=== PATIENT | male | born 1935 | race Caucasian/White ===

== ENCOUNTER 2019-10-31 04:00 | Outpatient (RCR) | payer MEDICARE, MEDICAID, SELFPAY | END 2019-11-05 00:01 | LOC: LAB 04:00 | PROVIDERS: Family Provider Family Medicine; Visit Provider Nurse Practitioner Family | DX: I10 Essential (primary) hypertension (principal); E11.9 Type 2 diabetes mellitus without complications; G20 Parkinson's disease; M10.9 Gout, unspecified | CPT/HCPCS: 36415 ×2; 80048 ×2 ==

== ENCOUNTER 2019-12-25 16:17 | Emergency (ER) | payer MEDICARE, MEDICAID, SELFPAY ==
[2019-12-25 16:21] VITALS: BP 160/70; PULSE 76; RESP 16; TEMP 37.9; O2SAT 87; BMI 29.1
[2019-12-25 16:26] VITALS: BP 160/70; PULSE 81; RESP 17; TEMP 37.9; O2SAT 93
--- NOTE | 2019-12-25 16:28 | PC.NURSE ---
pt has infection in foot
--- NOTE | 2019-12-25 17:52 | XR_ITS ---
WS: [id number] XR foot LT min 3V* [id number] REASON FOR EXAM: osteomyelitis FINDINGS: Degenerate changes and cystic findings are seen in the head of the first metatarsal. There is reconstructed changes also seen in the proximal first phalanx suggesting early osteomyelitis. In the calcaneus is a smooth appearing lesion most likely a cyst. There is 2.44 cm. XR/XR foot LT min 3V* [id number] IMPRESSION: Destructive changes suspected in the first metatarsophalangeal junction with an ulcer along the dorsal surface. Bone cyst of the calcaneus.
--- NOTE | 2019-12-25 18:03 | ED_ITS ---
HPI - Extremity Problem General: Chief complaint: Extremity Problem,Nontraumatic Stated complaint: L FOOT PAIN, SWELLING, INFECTION Time Seen by Provider: 12/25/19 16:36 Source: patient Mode of arrival: ambulatory Limitations: no limitations History of Present Illness: HPI Narrative: Patient comes in today with complaints of chronic wound to the left medial foot. Patient was referred to the ER for concerns of osteomyelitis. Patient appears well. Patient is very hard of hearing and has dementia. Patient is a [facility] patient. Review of Systems General: Reports: 10 or more systems reviewed and unremarkable except in HPI and below Skin/Breast: Reports: redness and skin tenderness PFSH ED PFSH: Social History Smoking and tobacco status: former smoker Physical Exam Const: COMMON NORMALS: no apparent distress and oriented x3 GENERAL APPEARANCE: cooperative HENMT: COMMON NORMALS: normocephalic, external ears normal, EAC's normal, TM's normal bilaterally and external nose normal HEAD & SCALP: normal to inspection and normocephalic FACE & SINUS: normal facial exam NOSE: external nose normal GENERAL EAR: hearing not grossly impaired EXTERNAL EAR: Yes external ears normal EXTERNAL AUDITORY CANAL: EAC's normal TYMPANIC MEMBRANE: TM's normal bilaterally MOUTH: oral and palatal mucosa normal THROAT: posterior oropharynx normal Eye: COMMON NORMALS: PERRL and EOMs intact bilaterally PUPIL: Yes PERRL Neck/C-Spine: COMMON NORMALS: full ROM and no lymphadenopathy Lymph: LYMPHATIC: no lymphedema noted Chest: COMMONS NORMALS: inspection of chest normal and palpation of chest normal Resp: COMMON NORMALS: normal respiratory effort and clear to auscultation bilaterally AUSCULTATION: clear to auscultation bilaterally Cardio: COMMON NORMALS: regular rate and regular rhythm RATE: regular rate RHYTHM: regular rhythm GI: COMMON NORMALS: normal to inspection, nondistended, normoactive bowel sounds and non-tender : COMMON NORMALS: Yes no CVA tenderness BLADDER/KIDNEY EXAM: Yes no CVA tenderness Back/Pelvis: COMMON NORMALS: no CVA tenderness and thoracic and lumbar spine normal to inspection Extremity: COMMON NORMALS: full ROM GENERAL: Yes edema Neuro: COMMON NORMALS: oriented x3, moves all extremities and no focal motor deficits Psych: COMMON NORMALS: mental status grossly normal and cooperative Skin: NARRATIVE SKIN EXAM: 2 cm ulcer to the left medial ball of the foot. 6 cm area of surrounding erythema. Patient has swelling to the lower extremity. Course ED course: 2199, reviewed with Dr. Kathleen, recommended talking with Dr. Servin, podiatry regarding abnormalities on CT. When discussed with him recommended treatment in the wound clinic for care of the chronic wound. wjw Vital Signs: Vital signs: Vital Signs Temperature 100.2 F H 12/25/19 16:26 Pulse Rate 103 H 12/25/19 18:12 Respiratory Rate 18 12/25/19 18:12 Blood Pressure 160/70 12/25/19 16:26 Pulse Oximetry 94 12/25/19 18:12 MDM - Extremity (Nontraumatic) MDM Narrative: Medical decision making narrative: Patient comes in today with complaints of redness and tenderness to the left foot. On exam we note a chronic foot ulcer with some surrounding tissue redness is approximately 6 to 8 cm surrounding the wound. Capillary refill is noted. Pulses are noted. Differential diagnosis includes DVT, cellulitis, osteomyelitis, diabetic foot ulcer. CT scan noted no significant osteomyelitis to the foot he did have a possible osteomyelitis or bone destruction in a sesamoid bone. This was reviewed with Dr. Servin in podiatry and he did not think it was significant and could be managed outpatient with wound care. Laboratory values did note slightly elevated white count 15.5, creatinine was 1.1. Patient was given IV fluids of a 1 L bag, was also dosed with vancomycin and Zosyn x1. Patient will be discharged with Cipro and Augmentin for further treatment. And case management was requested to assist with wound care follow-up. Patient will be discharged back to fdc which is [facility]. Lab Data: Labs: Lab Results 12/25/19 12/25/19 12/25/19 Range/Units 18:11 18:11 18:11 WBC 15.5 H (4.0-10.0) 10^3/ uL RBC 4.05 L (4.1-5.3) 10^6/u L Hgb 11.7 (11.7-16.6) g/dL Hct 37.7 L (42.0-52.0) % MCV 93.1 (80-94) fL MCH 28.9 (28.0-34.0) pg MCHC 31.0 (30.0-36.0) g/dL RDW 13.2 (12.1-15.1) % Plt Count 334 (130-400) 10^3/c mm MPV 9.8 (7.4-10.4) fL Neut % (Auto) 78.3 % Lymph % (Auto) 13.5 % [place] % (Auto) 6.9 % Eos % (Auto) 0.5 % Baso % (Auto) 0.3 % Neut # (Auto) 12.2 H (1.8-7.7) 10^3/u L Lymph # (Auto) 2.1 (0.8-4.8) 10^3/u L [place] # (Auto) 1.1 H (0.2-0.9) 10^3/u L Eos # (Auto) 0.1 (0.0-0.8) 10^3/u L Baso # (Auto) 0.0 (0.0-0.1) 10^3/u L Nucleated RBC % (a uto) 0 % Nucleated RBCs # 0.0 /100WBC Sodium 136 (136-145) mmol/L Potassium 4.7 (3.5-5.1) mmol/L Chloride 97 L (98-107) mmol/L Carbon Dioxide 27 (22-29) mmol/L Anion Gap 16.7 (5-19) BUN 28 H (8-23) mg/dL Creatinine 1.1 (0.7-1.2) mg/dL Glucose 203 H (65-115) mg/dL Lactic Acid 2.4 H (0.5-2.2) mmol/L Calcium 9.8 (8.5-10.5) mg/dL Total Bilirubin 0.3 (0.15-1.2) mg/dL AST 17 (0-40) U/L ALT 17 (0-41) U/L Alkaline Phosphata se 134 H (40-130) IU/L Total Protein 7.8 (6.6-8.7) g/dL Albumin 3.7 (3.5-5.2) g/dL Globulin 4.1 (1.3-4.6) g/dL Discharge Plan Discharge Patient Disposition: Home, Self-Care Clinical Impression: Cellulitis of foot, left Chronic foot ulcer Qualifiers: Laterality: left Non-pressure ulcer stage: unspecified non-pressure ulcer stage Qualified Code(s): L97.529 - Non-pressure chronic ulcer of other part of left foot with unspecified severity Condition: Stable Prescriptions: New ciprofloxacin HCl 500 mg tablet 500 mg PO BID Qty: 20 RF: 0 amoxicillin-pot clavulanate 875-125 mg tablet 1 tab PO BID Qty: 20 RF: 0 Discharge Orders: Discharge Order (Routine); Ordered 12/25/19 Ordered By: Obdulio Tomlinson Referrals: Wilma Todd DO [Family Provider] - Discharge Diet: Usual diet Discharge Activity: Increase activity as tolerated Activity Restrictions/Additional Instructions: Patient needs referral for wound clinic Antibiotics as directed Encourage plenty of fluids Acetaminophen as needed for pain and fever Follow-up with primary care in one week Coding Level of Care Code ED Outdoor Recreation Specialist for Arslan Fwlucas Exam Comprehensive
[2019-12-25 18:12] VITALS: PULSE 103; RESP 18; O2SAT 94
[2019-12-25] MEDS: piperacillin-tazobactam 3.375 GM in sodium chloride 0.9% (plus) 50 ML IV (18:19)
[2019-12-25 18:20] LABS: Basophils % 0.3 %; Eosinophils # 0.1 10^3/uL (0.0-0.8); Eosinophils % 0.5 %; Hematocrit 37.7 % (42.0-52.0); Hemoglobin 11.7 g/dL (11.7-16.6); Lymphocytes # 2.1 10^3/uL (0.8-4.8); Lymphocytes % 13.5 %; Mean Corpuscular Hemoglobin 28.9 pg (28.0-34.0); Mean Corpuscular Volume 93.1 fL (80-94); Mean Platelet Volume 9.8 fL (7.4-10.4); Monocytes # 1.1 10^3/uL (0.2-0.9); Monocytes % 6.9 %; Neutrophils # 12.2 10^3/uL (1.8-7.7); Neutrophils % 78.3 %; Nucleated Red Blood Cells % 0 %; Platelet Count 334 10^3/cmm (130-400); Red Blood Count 4.05 10^6/uL (4.1-5.3); Red Cell Distribution Width 13.2 % (12.1-15.1); White Blood Count 15.5 10^3/uL (4.0-10.0)
[2019-12-25] MEDS: sodium chloride 0.9% 1,000 ML 999 ML IV (18:21)
[2019-12-25 18:41] LABS: Lactic Sepsis W/Reflex 2.4 mmol/L (0.5-2.2)
[2019-12-25 18:42] LABS: Alanine Aminotransferase 17 U/L (0-41); Albumin Level 3.7 g/dL (3.5-5.2); Alkaline Phosphatase 134 IU/L (40-130); Anion Gap 16.7 (5-19); Blood Urea Nitrogen 28 mg/dL (8-23); Calcium 9.8 mg/dL (8.5-10.5); Carbon Dioxide 27 mmol/L (22-29); Chloride 97 mmol/L (98-107); Globulin 4.1 g/dL (1.3-4.6); Glucose 203 mg/dL (65-115); Potassium 4.7 mmol/L (3.5-5.1); Sodium 136 mmol/L (136-145); Total Bilirubin 0.3 mg/dL (0.15-1.2); Total Protein 7.8 g/dL (6.6-8.7)
[2019-12-25 18:45] LABS: Aspartate Amino Transferase 17 U/L (0-40)
--- NOTE | 2019-12-25 18:46 | CTR_ITS ---
PROCEDURE INFORMATION: Exam: CT Left Lower Extremity With Contrast, Foot Exam date and time: 12/25/2019 8:24 PM Age: 84 years old Clinical indication: Condition or disease; Other: Sore on ball of lt foot; Additional info: Foot ulcer, osteomyelitis TECHNIQUE: Imaging protocol: CT of the Left lower extremity with intravenous contrast was performed. Exam focused on the foot. Total DLP: 653.83 mGy-cm Radiation optimization: All CT scans at this facility use at least one of these dose optimization techniques: automated exposure control; mA and/or kV adjustment per patient size (includes targeted exams where dose is matched to clinical indication); or iterative reconstruction. Contrast material: VISIPAQUE; Contrast volume: 95 ml; Contrast route: IV; COMPARISON: CR XR foot LT min 3V* [id number] 12/25/2019 6:10 PM FINDINGS: Bones/joints: Old fracture deformity of the distal fibula is noted. Old avulsion fracture of the medial malleolus with bony remodeling is noted. No acute fracture or dislocation. There is a prominent area of lucency with some coarsened trabecula in the calcaneus compatible with a probable intraosseous lipoma. No additional bony destruction or osteomyelitis. Soft tissues: There is soft tissue edema in the distal foot especially adjacent to the 1st toe. There is an ulcer of the plantar medial foot. Some subtle cortical regularity of the medial sesamoid bone that may reflect some osteomyelitis just deep to the ulcer. No foreign body. There is abundant soft tissue edema specially along the medial aspect of the foot adjacent to the ulcer. No localized soft tissue fluid collection or abscess. No gas in the soft tissues except for the ulcer. CT/CT foot LT w con [id number] IMPRESSION: 1. Some subtle cortical regularity of the medial sesamoid bone just deep to the ulcer that is concerning for bony destruction/osteomyelitis just deep to the ulcer. No osteomyelitis of the 1st metatarsal or remaining bones of the foot 2. 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 Old remote fracture deformities of the distal tibia and fibula. 3. Ulcer of the medial foot. Cellulitis. No fluid collection or abscess. Radiation Dose CTDIVOL = (mGy): DLP = 653.83 (mGy-cm)
[2019-12-25] MEDS: iodixanol 320 mg/mL 100mL Btl IV (20:25)
[2019-12-25 23:07] VITALS: BP 148/64; PULSE 82; RESP 16; O2SAT 94
--- NOTE | 2019-12-25 23:30 | PC.NURSE ---
Spoke with alf and called for transport for patient back to alf.
--- NOTE | 2019-12-26 01:30 | PC.NURSE ---
Patient dc'd to [facility] via [facility] in stable condition.
--- NOTE | 2019-12-26 14:52 | DCPLANNER ---
manager coding had message to schedule a follow up appointment for patient with Wound Care. manager coding called Wound Care, spoke with Alyssa, a follow up appointment was scheduled. manager coding found out that patient is in a custodial, piano case maker called the custodial, was told that wound care comes into the clinic. manager coding called Wound Care and cancelled appointment.
--- NOTE | 2019-12-27 17:24 | PC.NURSE ---
Blood Culture: Preliminary result-1 of 4 bottles gram positive cocci & clusters, Dr. Jenny SYKES, no further treatment at this time, waiting for final results.
== END 2019-12-26 01:30 | disposition home or self-care (01) ==
PROVIDERS: Emergency Provider Nurse Practitioner Family; Family Provider Family Medicine
DX: L03.116 Cellulitis of left lower limb (principal); L97.429 Non-pressure chronic ulcer of left heel and midfoot with unspecified severity; Z87.891 Personal history of nicotine dependence
CPT/HCPCS: 36415; 73630; 73701; 80053; 83605; 85025; 87040; 87205; 96365; 99282; 99283; J2543; J7030; Q9967

== ENCOUNTER 2019-12-30 08:44 | Inpatient (IN) | payer MEDICARE, MEDICAID, SELFPAY ==
[2019-12-30] VITALS (17 sets, daily range): BP systolic 88–145; BP diastolic 49–78; PULSE 60–82; RESP 13–22; TEMP 36.2–36.9; O2SAT 90–97
--- NOTE | 2019-12-30 08:56 | ED_ITS ---
Entered by Zohra Kevin, acting as scribe for Rashard Alvarado DO HPI - Altered Mental Status General: Chief Complaint: Extremity Problem,Nontraumatic Stated Complaint: AMS, FOOT WOUND Time Seen by Provider: 12/30/19 08:52 Source: EMS Mode of arrival: EMS Limitations: altered mental status History of Present Illness: HPI narrative: 84 yo male presents with altered mental status and wound to Left foot. per nursing staff and EMS his foot is getting worse with the infection. per nursing staff pt was seen 5 days ago for foot wound they started him on antibiotics. EMS denied any other symptoms. pt is unable to answer any questions at this time. Patient was seen 4 days ago and started on oral antibiotics he is obtunded when he arrives here there is obvious gangrene of his second toe on the left foot extending to the forefoot MD complaint: altered mental status and decreased responsiveness Onset (ago): day(s) (5 days ago) Timing confirmed by: other (assisted staff) Severity: moderate Consistency of symptoms: Getting Worse Associated symptoms: Reports other (wound and laceration to L foot) Review of Systems General: Reports: ROS unobtainable due to medical condition and ROS unobtainable due to mental status PFS ED PFSH: Medical History (Updated 12/30/19 @ 15:06 by Obdulio Conrad MD) Dementia Depressed Diabetes Gas gangrene Gout History of skin cancer Hyperlipemia Parkinson disease Surgical History (Updated 12/30/19 @ 13:24 by Alejandra Marroquin DO) History of eyelid surgery History of surgical procedure on eye proper using laser S/P cervical spinal fusion Family History (Updated 12/30/19 @ 13:25 by Alejandra Marroquin DO) Other Cancer Dementia Diabetes Social History (Updated 12/30/19 @ 13:26 by Alejandra Marroquin DO) Smoking and tobacco status: former smoker Alcohol intake: former Substance/Drug Use: never Marital status: / Pooja/Jew: Restorationism Additional social history: snf resident at [facility] Physical Exam HENMT: COMMON NORMALS: normocephalic, head/scalp atraumatic, hearing grossly normal bilaterally, external ears normal, EAC's normal, TM's normal bilaterally, nasal mucous membranes and turbinates normal, moist oral mucous membranes and oropharynx normal HEAD & SCALP: normocephalic and atraumatic NOSE: nasal mucous membranes and turbinates normal EXTERNAL EAR: Yes external ears normal EXTERNAL AUDITORY CANAL: EAC's normal TYMPANIC MEMBRANE: TM's normal bilaterally Eye: COMMON NORMALS: PERRL, EOMs intact bilaterally, conjunctivae normal and no scleral icterus CONJUNCTIVA: Yes conjunctivae normal PUPIL: Yes PERRL Neck/C-Spine: COMMON NORMALS: full ROM, no lymphadenopathy, supple and no JVD Lymph: LYMPHATIC: no lymphadenopathy noted and no lymphedema noted Cardio: COMMON NORMALS: no JVD, regular rate, regular rhythm and no murmurs RATE: regular rate RHYTHM: regular rhythm GI: COMMON NORMALS: soft to palpation and no hepatosplenomegaly AUSCULTATION: Yes normoactive bowel sounds PALPATION: Yes soft, No tender, No guarding and Yes no hepatosplenomegaly Extremity: LEFT LOWER EXTREMITY: Yes foot & digits (Second toe is gangrenous in appearance with laceration over the superior aspect proximally. There is dull erythema throughout the entire foot extending up to the ankle and some what appears to be lymphatic spread extending on the anterior tibia to just distal to the knee.) Neuro: SENSORIUM/ORIENTATION: Yes obtunded Course ED course: CT and x-ray show significant amount of subcutaneous gas I do not believe this limb is salvageable at this point ABIs are very poor in that left leg discussed Dr. Marroquin and Dr. Anamaria Conrad is taken the patient from the OR to the operating room Dr. Marroquin is admitting to the floor is attending. Vital Signs: Vital signs: Vital Signs Temperature 98.4 F 12/30/19 08:44 Pulse Rate 75 12/30/19 15:07 Respiratory Rate 14 12/30/19 15:07 Blood Pressure 88/49 12/30/19 15:07 Pulse Oximetry 94 12/30/19 15:07 MDM - Altered Mental Status Lab Data: Labs: Lab Results 12/30/19 12/30/19 12/30/19 Range/Units 09:23 09:23 09:23 WBC 20.0 H (4.0-10.0) 10^3/ uL RBC 3.44 L (4.1-5.3) 10^6/u L Hgb 9.9 L (11.7-16.6) g/dL Hct 31.8 L (42.0-52.0) % MCV 92.4 (80-94) fL MCH 28.8 (28.0-34.0) pg MCHC 31.1 (30.0-36.0) g/dL RDW 13.9 (12.1-15.1) % Plt Count 388 (130-400) 10^3/c mm MPV 10.1 (7.4-10.4) fL Neut % (Auto) 85.5 % Lymph % (Auto) 6.9 % [place] % (Auto) 4.9 % Eos % (Auto) 0.1 % Baso % (Auto) 0.2 % Neut # (Auto) 17.1 H (1.8-7.7) 10^3/u L Lymph # (Auto) 1.4 (0.8-4.8) 10^3/u L [place] # (Auto) 1.0 H (0.2-0.9) 10^3/u L Eos # (Auto) 0.0 (0.0-0.8) 10^3/u L Baso # (Auto) 0.0 (0.0-0.1) 10^3/u L Nucleated RBC % (a uto) 0 % Nucleated RBCs # 0.0 /100WBC Sodium 139 (136-145) mmol/L Potassium 3.9 (3.5-5.1) mmol/L Chloride 101 (98-107) mmol/L Carbon Dioxide 25 (22-29) mmol/L Anion Gap 16.9 (5-19) BUN 27 H (8-23) mg/dL Creatinine 1.2 (0.7-1.2) mg/dL Glucose 303 H (65-115) mg/dL Lactate 1.9 (0.5-2.2) mmol/L Calcium 9.5 (8.5-10.5) mg/dL Total Bilirubin 0.6 (0.15-1.2) mg/dL AST 21 (0-40) U/L ALT 54 H (0-41) U/L Alkaline Phosphata se 288 H (40-130) IU/L Total Protein 6.8 (6.6-8.7) g/dL Albumin 2.7 L (3.5-5.2) g/dL Globulin 4.1 (1.3-4.6) g/dL Imaging Data^: Other Xray: Radiologist's impression: [facility] [address] [place] [address] XRay Report Signed with Addenda Patient: Jordon Guillen #: [id number] : 7Acct#:[id number] Age/Sex: 84 / MADM Date: 12/30/19 Loc: ERRoom/Bed: Attending Dr: Ordering Provider/Ordering MD: Rashard Alvarado DO Date of Service: 12/30/19 Procedure(s): XR foot LT 2V 57793 Accession Number(s): [id number] Report Number: [id number] ADDENDUM XR/XR foot LT 2V 63235 THIS REPORT CONTAINS FINDINGS THAT MAY BE CRITICAL TO PATIENT CARE. The exam findings were verbally communicated by me via telephone conference to Rashard Alvarado at 10:22 AM INSPECTOR REPAIRER [employer] on 12/30/2019. The findings were acknowledged and understood. Addendum Dictated By: Gaurav Reid Addendum Signed By: Alexis Reid Date/Time:12/30/19 1027 Addendum Cosigned By: PROCEDURE INFORMATION: Exam: XR Left Foot Exam date and time: 12/30/2019 9:14 AM Age: 84 years old Clinical indication: Gangrenous TECHNIQUE: Imaging protocol: XR Left foot. Views: 1 or 2 views. COMPARISON: CR XR foot LT min 3V* [id number] 12/25/2019 6:10 PM FINDINGS: Bones/joints: No fracture. No dislocation. There may be focal cortical bone loss at the medial margin of the head of the 1st metatarsal. Soft tissues: There is a focal superficial soft tissue ulceration at the plantar forefoot on the lateral view, inferior to the head of the 1st metatarsal and sesamoid bone. There is soft tissue swelling involving the forefoot, to a lesser extent the midfoot and extending up to the ankle. There is now gas in the soft tissue extending from the forefoot to the ankle compatible with gangrene. In the forefoot this is particularly severe involving the 2nd toe. Other findings: There is medial calcinosis which can be associated with underlying diabetes mellitus and or renal insufficiency. XR/XR foot LT 2V [id number] IMPRESSION: 1. Development of extensive soft tissue gas compatible with gangrene. 2. Question of osteomyelitis involving the head of the 1st metatarsal. Noncontrast CT scan could be performed to evaluate for more subtle, radiographically inapparent foci of osteomyelitis. Dictated By:Gaurav Reid Signed By:Alexis Reid Date/Time:12/30/19 1027 Discharge Plan Discharge Patient Disposition: Admitted As Inpatient Referrals: Wilma Todd DO [Family Provider] - Discharge Date/Time: 12/30/19 15:09 Coding Level of Care Code ED [employer] Worker for Chg Fwd Exam Comprehensive The documentation recorded by the Herberth leung Bridget Annette, accurately reflects the service I personally performed and the decisions made by Jenny hill Curtis L, DO Dec 30, 2019 15:08
--- NOTE | 2019-12-30 09:12 | XRR_ITS ---
PROCEDURE INFORMATION: Exam: XR Left Foot Exam date and time: 12/30/2019 9:14 AM Age: 84 years old Clinical indication: Gangrenous TECHNIQUE: Imaging protocol: XR Left foot. Views: 1 or 2 views. COMPARISON: CR XR foot LT min 3V* [id number] 12/25/2019 6:10 PM FINDINGS: Bones/joints: No fracture. No dislocation. There may be focal cortical bone loss at the medial margin of the head of the 1st metatarsal. Soft tissues: There is a focal superficial soft tissue ulceration at the plantar forefoot on the lateral view, inferior to the head of the 1st metatarsal and sesamoid bone. There is soft tissue swelling involving the forefoot, to a lesser extent the midfoot and extending up to the ankle. There is now gas in the soft tissue extending from the forefoot to the ankle compatible with gangrene. In the forefoot this is particularly severe involving the 2nd toe. Other findings: There is medial calcinosis which can be associated with underlying diabetes mellitus and or renal insufficiency. XR/XR foot LT 2V [id number] IMPRESSION: 1. Development of extensive soft tissue gas compatible with gangrene. 2. Question of osteomyelitis involving the head of the 1st metatarsal. Noncontrast CT scan could be performed to evaluate for more subtle, radiographically inapparent foci of osteomyelitis.
--- NOTE | 2019-12-30 09:26 | PC.NURSE ---
Symptoms/Complaint: Swelling of the left forefoot. 2nd toe is discolored (perez/black)
[2019-12-30 09:30] LABS: Basophils % 0.2 %; Eosinophils % 0.1 %; Hematocrit 31.8 % (42.0-52.0); Hemoglobin 9.9 g/dL (11.7-16.6); Lymphocytes # 1.4 10^3/uL (0.8-4.8); Lymphocytes % 6.9 %; Mean Corpuscular HGB Conc 31.1 g/dL (30.0-36.0); Mean Corpuscular Hemoglobin 28.8 pg (28.0-34.0); Mean Corpuscular Volume 92.4 fL (80-94); Mean Platelet Volume 10.1 fL (7.4-10.4); Monocytes % 4.9 %; Neutrophils # 17.1 10^3/uL (1.8-7.7); Neutrophils % 85.5 %; Nucleated Red Blood Cells % 0 %; Platelet Count 388 10^3/cmm (130-400); Red Blood Count 3.44 10^6/uL (4.1-5.3); Red Cell Distribution Width 13.9 % (12.1-15.1)
[2019-12-30 09:45] LABS: Alanine Aminotransferase 54 U/L (0-41); Albumin Level 2.7 g/dL (3.5-5.2); Alkaline Phosphatase 288 IU/L (40-130); Anion Gap 16.9 (5-19); Aspartate Amino Transferase 21 U/L (0-40); Blood Urea Nitrogen 27 mg/dL (8-23); Calcium 9.5 mg/dL (8.5-10.5); Carbon Dioxide 25 mmol/L (22-29); Chloride 101 mmol/L (98-107); Globulin 4.1 g/dL (1.3-4.6); Glucose 303 mg/dL (65-115); Potassium 3.9 mmol/L (3.5-5.1); Sodium 139 mmol/L (136-145); Total Bilirubin 0.6 mg/dL (0.15-1.2); Total Protein 6.8 g/dL (6.6-8.7)
[2019-12-30] MEDS: levofloxacin-dextrose 5 % 750 MG/150 ML PREMIX 150 MG IV (10:43)
[2019-12-30 10:54] LABS: Lactate (Lactic Acid level) 1.9 mmol/L (0.5-2.2)
--- NOTE | 2019-12-30 12:59 | P.HP_ITS ---
Providers/Chief Complaint Admitting Physician: Alejandra Marroquin DO Primary Care Provider: Dr. Maxwell Chief Complaint: FOOT WOUND History of Present Illness Jordon Guillen is a 84 year old male that presented from the senior care due to increasing left lower extremity redness. Patient had been to the ER previously diagnosed with lower extremity cellulitis and discharged home with Cipro and Augmentin. Patient return to the emergency department today due to staff concern for increasing erythema and gangrene in the second left toe. Patient with underlying dementia therefore extremely difficult to obtain HPI and past medical history. Past medical history is mainly obtained from chart review. Patient's daughter did present and reported that his dementia is secondary to history of alcoholism. Patient was seen and evaluated in the emergency department and admitted for further evaluation and treatment due to concern for left lower extremity gangrene. Vascular surgeon was consulted by ER physician, Dr. Conrad. Review of Systems General: Reports: ROS unobtainable due to mental status Medications/Allergies Home Medications Medication Instructions Recorded Confirmed Last Taken Type Lactobacillus acidophilus 10 mg PO DAILY 12/30/19 12/30/19 Unknown History [Acidophilus] acetaminophen [Tylenol] 650 mg PO QID PRN 12/30/19 12/30/19 Unknown History allopurinol 200 mg PO DAILY 12/30/19 12/30/19 Unknown History amlodipine 5 mg PO DAILY 12/30/19 12/30/19 Unknown History aspirin 81 mg PO DAILY 12/30/19 12/30/19 Unknown History bisacodyl 10 mg VT DAILY PRN 12/30/19 12/30/19 Unknown History buspirone 15 mg PO TID 12/30/19 12/30/19 Unknown History ciclopirox 1 applic TOPICAL DAILY 12/30/19 12/30/19 Unknown History ciclopirox 5 ml TOPICAL Q3D 12/30/19 12/30/19 Unknown History collagenase clostridium histo. 1 applic TOPICAL DAILY 12/30/19 12/30/19 Unknown History [Santyl] duloxetine 30 mg PO DAILY 12/30/19 12/30/19 Unknown History gabapentin 300 mg PO BID 12/30/19 12/30/19 Unknown History glipizide 2.5 mg PO BID 12/30/19 12/30/19 Unknown History hydrocodone-acetaminophen 1 tab PO Q8H PRN 12/30/19 12/30/19 Unknown History ibuprofen 200 mg PO Q4H PRN 12/30/19 12/30/19 Unknown History insulin detemir U-100 [Levemir 30 unit SUBCUT DAILY 12/30/19 12/30/19 Unknown History FlexTouch U-100 Insuln] losartan 100 mg PO DAILY 12/30/19 12/30/19 Unknown History memantine [Namenda] 10 mg PO BID 12/30/19 12/30/19 Unknown History mirtazapine 7.5 mg PO DAILY 12/30/19 12/30/19 Unknown History multivitamin 1 tab PO DAILY 12/30/19 12/30/19 Unknown History nut.tx,spec.frm,l-fr,iron-fos 60 ea PO TID 12/30/19 12/30/19 Unknown History [TwoCal HN] oseltamivir [Tamiflu] 75 mg PO DAILY 12/30/19 12/30/19 Unknown History oxcarbazepine 150 mg PO BID 12/30/19 12/30/19 Unknown History pantoprazole 20 mg PO DAILY 12/30/19 12/30/19 Unknown History risperidone 1 mg PO TID 12/30/19 12/30/19 Unknown History sitagliptin [Januvia] 50 mg PO DAILY 12/30/19 12/30/19 Unknown History tamsulosin [Flomax] 0.4 mg PO DAILY 12/30/19 12/30/19 Unknown History Allergies Allergy/AdvReac Type Severity Reaction Status Date / Time bee pollen Allergy Unknown Verified 12/25/19 18:24 PFSH Acute PFSH: Medical History (Updated 12/30/19 @ 13:24 by Alejandra Marroquin DO) Dementia Depressed Diabetes Gout History of skin cancer Hyperlipemia Parkinson disease Surgical History (Updated 12/30/19 @ 13:24 by Alejandra Marroquin DO) History of eyelid surgery History of surgical procedure on eye proper using laser S/P cervical spinal fusion Family History (Updated 12/30/19 @ 13:25 by Alejandra Marroquin DO) Other Cancer Dementia Diabetes Social History (Updated 12/30/19 @ 13:26 by Alejandra Marroquin DO) Smoking and tobacco status: former smoker Alcohol intake: former Substance/Drug Use: never Marital status: / Pojoa/Zoroastrianism: Sikh Additional social history: [facility] resident at [facility] Vitals/I&O/Wt Last Vital Signs Temp 98.4 F 12/30/19 08:44 Pulse 69 12/30/19 11:34 Resp 14 12/30/19 08:54 BP 95/61 12/30/19 11:34 Pulse Ox 95 12/30/19 11:34 Weight last 48 hrs Weight 99.705 kg Physical Exam Const: EXAM LIMITATIONS: altered mental status ORIENTATION/CONSCIOUSNESS: Yes confused HENMT: COMMON NORMALS: normocephalic and head/scalp atraumatic HEAD & SCALP: normocephalic and atraumatic Eye: COMMON NORMALS: PERRL PUPIL: Yes PERRL Neck/C-Spine: COMMON NORMALS: supple GENERAL: Yes normal visual inspection Resp: COMMON NORMALS: normal respiratory effort and clear to auscultation bilaterally AUSCULTATION: clear to auscultation bilaterally, no rhonchi and no wheezes Cardio: COMMON NORMALS: regular rate, regular rhythm and no murmurs RATE: regular rate RHYTHM: regular rhythm GI: COMMON NORMALS: soft to palpation and non-tender INSPECTION: No abdomin al distension AUSCULTATION: Yes normoactive bowel sounds PALPATION: Yes soft Extremity: OTHER: Left foot with erythema extending up to the knee. Patient has second digit on the left foot that is black with edema and drainage at the base of the second toe concerning for gangrene Neuro: OTHER: Patient with chronic dementia and chronic confusion, will open his eyes and follows some questions appropriately. Psych: COMMON NORMALS: cooperative Skin: NARRATIVE SKIN EXAM: Left lower extremity with erythema and edema, erythema extending to the knee with second toe with black/blue discoloration concerning for gangrene Data : 12/30/19 09:23 12/30/19 09:23 Micro: Microbiology 12/30/19 09:20 Blood Culture - Preliminary Blood SPECIMEN COLLECTED 12/30/19 09:23 Blood Culture - Preliminary Blood SPECIMEN COLLECTED Xray Ortho: My impression: Reviewed, report as read by radiologist: Radiologist's impression: IMPRESSION: 1. Development of extensive soft tissue gas compatible with gangrene. 2. Question of osteomyelitis involving the head of the 1st metatarsal. Noncontrast CT scan could be performed to evaluate for more subtle, radiographically inapparent foci of osteomyelitis. A&P Assessment and plan (1) Cellulitis of foot, left: Left lower extremity cellulitis with concern for gangrene with developing soft tissue gas in the left foot with question of osteomyelitis. Recent imaging reviewed from previous ER admission. Patient had been on oral antibiotics but failed treatment. ER physician, Dr. Alvarado, discussed with vascular surgeon, Dr. Conrad, for consultation. Will follow up with recommendations, appreciate assistance in patient's care. We will continue with broad-spectrum antibiotics, vancomycin and Zosyn Order lower extremity arterial ultrasound for review Status: Acute Code(s): L03.116 - Cellulitis of left lower limb (2) Diabetes: Will decrease Levemir to 15 units at bedtime, due to patient being nothing to eat or drink Moderate dose sliding scale insulin as needed Status: Acute Code(s): E11.9 - Type 2 diabetes mellitus without complications (3) Dementia: Daughter at bedside reported history of alcoholic dementia Daughter reported that he typically does not recognize her, stated that he can have some physical aggression at times. On buspirone 15 mg 3 times daily, risperidone 1 mg 3 times daily, oxcarbazepine 150 mg twice daily, Namenda 10 mg 2 times daily, on mirtazapine 7.5 mg daily, duloxetine 30 mg Status: Acute Code(s): F03.90 - Unspecified dementia without behavioral disturbance Additional A&P Information Acute kidney injury: We will give gentle IV fluids and continue close monitoring , caution with any nephrotoxic agents. Hypertension: Patient's blood pressure is soft at this time will hold home losartan and amlodipine Patient has been on prophylactic dose of Tamiflu due to being a senior care resident BPH: Continue home Flomax Anemia: No evidence of any active bleeding, will continue to monitor closely Recent positive blood culture, this was reported from blood culture that was collected on 12/25/2019, 1 out of 4 bottles positive for coagulase-negative Staphylococcus, likely contamination. Repeat blood cultures ordered and pending DVT prophylaxis:SCD to R LE, no pharmacologic prophylaxis due to anemia Diet: N.p.o. due to possibility of surgery CODE STATUS: Do Not Resuscitate/DNI, this was discussed with patient's daughter at bedside who is his healthcare DPOA Attestations Medical Necessity Statement*: Requires hospitalization due to dementia, acute kidney injury, diabetes with concern for gangrenous lower extremity on the left. Expected stay greater than 2 midnights Coding Level of Care Code Acute Mixing Technician for Chg Fwd Diagnoses Cellulitis of foot, left L03.116 Diabetes E11.9 Dementia F03.90
--- NOTE | 2019-12-30 13:16 | USCV_ITS ---
Jordon Guillen Age: 84 Gender: M : 1935 Exam Date: 12/30/2019 13:40 Ordering Phys: Alejandra Marroquin DO Technologist: Fawad Eller Exam Location: [facility] [place] Indication: GANG GREEN Risk Factors: Previous Vascular Surgery: RIGHT LEFT BP: 100.0 / 51.00 BP: 100.0/ 52.00 0 0 Waveform Velocity (cm/s) Velocity (cm/s) Waveform Iliac Prox 62.7 Triphasic Iliac Mid 83.6 Triphasic Iliac Distal 76.6 Triphasic GEOCHEMISTRY TEACHER 61.8 Biphasic SFA Prox 23.8 Monophasic SFA Mid 27.2 Monophasic SFA Dist 26.6 Monophasic DPA 45.3 DM 0.3 FINDINGS Monophasic low velocity continuous Doppler waveforms in the superficial femoral artery No Doppler flow signals in the popliteal and posterior tibial arteries A phasic and continues waveforms in the dorsalis pedis artery on the left side. Resting DM 0.3 CONCLUSIONS Abnormal resting DM and Doppler waveforms on the left side, suggestive of severe peripheral arterial disease, possibly multisegmental. Features of total occlusion of the popliteal and posterior tibial arteries on the left side. Features of collateral filling of the dorsalis pedis artery No similar previous studies are available for comparison Dr Pamella Dumont MD [facility] (Electronically Signed) Final Date: 31 December 2019 20:14 S
--- NOTE | 2019-12-30 15:00 | P.CONIM_ITS ---
Providers/Reason For Consult Consulting Physican/Specialty*: Dr. Conrad cardiothoracic surgery Reason for Consult*: Gangrene with gas left lower extremity Requesting Physcian: Dr. Marroquin History of Present Illness History of Present Illness Jordon Guillen is an 84 year old male who presents to the emergency department earlier today from a local skilled care facility with worsening left lower extremity cellulitis. He was recently in the ER on December 25 with gangrenous changes to his left second toe and cellulitis and simply discharged on ciprofloxacin and Augmentin. At that time there were no evidence for subcutaneous gas but there was perhaps 1 foci of osteomyelitis involving the sesamoid bone. He has substantial dementia and has not been communicative since arrival today. His daughter has just arrived and I will be speaking with her shortly. I have conferred with my colleague, Dr. Alvarado from the emergency department. All past medical history is obtained from chart review, is a patient is unable to provide any meaningful information. I have personally reviewed the radiographic studies from his prior ER presentat ion on the as well as again today. Current white count is 20,000. It was 15,000 on the . One blood culture bottle from the did grow coag negative Staphylococcus. Blood cultures have been obtained again today. He is also anemic with hemoglobin 9.9. I suspect with surgery and hydration he will further drop, so we will be prepared for transfusion. I obtained some past history from his daughter who was able to arrive prior to his surgery. He has a long history for alcohol use. He is a retired truck loader overhead crane. He has lived in [facility] for the past 5 years, having been placed there due to dementia and subsequent aggressive behavior. She had last visited with him about 2 months ago. He was conversive then, though inappropriate in conversation not recognizing her and thinking that her daughter was her. Review of Systems General: Reports: ROS unobtainable due to mental status Meds/Allergies Home Medications and Allergies Home Medications Medication Instructions Recorded Confirmed Type Lactobacillus acidophilus 10 mg PO DAILY 12/30/19 12/30/19 History [Acidophilus] acetaminophen [Tylenol] 650 mg PO QID PRN 12/30/19 12/30/19 History allopurinol 200 mg PO DAILY 12/30/19 12/30/19 History amlodipine 5 mg PO DAILY 12/30/19 12/30/19 History aspirin 81 mg PO DAILY 12/30/19 12/30/19 History bisacodyl 10 mg MO DAILY PRN 12/30/19 12/30/19 History buspirone 15 mg PO TID 12/30/19 12/30/19 History ciclopirox 1 applic TOPICAL DAILY 12/30/19 12/30/19 History ciclopirox 5 ml TOPICAL Q3D 12/30/19 12/30/19 History collagenase clostridium histo. 1 applic TOPICAL DAILY 12/30/19 12/30/19 History [Santyl] duloxetine 30 mg PO DAILY 12/30/19 12/30/19 History gabapentin 300 mg PO BID 12/30/19 12/30/19 History glipizide 2.5 mg PO BID 12/30/19 12/30/19 History hydrocodone-acetaminophen 1 tab PO Q8H PRN 12/30/19 12/30/19 History ibuprofen 200 mg PO Q4H PRN 12/30/19 12/30/19 History insulin detemir U-100 [Levemir 30 unit SUBCUT DAILY 12/30/19 12/30/19 History FlexTouch U-100 Insuln] losartan 100 mg PO DAILY 12/30/19 12/30/19 History memantine [Namenda] 10 mg PO BID 12/30/19 12/30/19 History mirtazapine 7.5 mg PO DAILY 12/30/19 12/30/19 History multivitamin 1 tab PO DAILY 12/30/19 12/30/19 History nut.tx,spec.frm,l-fr,iron-fos 60 ea PO TID 12/30/19 12/30/19 History [TwoCal HN] oseltamivir [Tamiflu] 75 mg PO DAILY 12/30/19 12/30/19 History oxcarbazepine 150 mg PO BID 12/30/19 12/30/19 History pantoprazole 20 mg PO DAILY 12/30/19 12/30/19 History risperidone 1 mg PO TID 12/30/19 12/30/19 History sitagliptin [Januvia] 50 mg PO DAILY 12/30/19 12/30/19 History tamsulosin [Flomax] 0.4 mg PO DAILY 12/30/19 12/30/19 History Allergies Allergy/AdvReac Type Severity Reaction Status Date / Time bee pollen Allergy Unknown Verified 12/25/19 18:24 Current Medications Current Medications Generic Name Dose Route Start Last Admin Trade Name Freq PRN Reason Stop Dose Admin Vancomycin HCl 1,500 mg/ 250 mls @ 166.667 mls/hr 12/30/19 11:30 12/30/19 11:47 Sodium Chloride IV 166.7 mls/hr Q18H SHERRON Administration Protocol PFSH Acute PFSH: Medical History (Updated 12/30/19 @ 15:06 by Obdulio Conrad MD) Dementia Depressed Diabetes Gas gangrene Gout History of skin cancer Hyperlipemia Parkinson disease Surgical History (Updated 12/30/19 @ 13:24 by Alejandra Marroquin DO) History of eyelid surgery History of surgical procedure on eye proper using laser S/P cervical spinal fusion Family History (Updated 12/30/19 @ 13:25 by Alejandra Marroquin DO) Other Cancer Dementia Diabetes Social History (Updated 12/30/19 @ 13:26 by Alejandra Marroquin DO) Smoking and tobacco status: former smoker Alcohol intake: former Substance/Drug Use: never Marital status: / Pooja/Orthodox: Temple Additional social history: [facility] resident at [facility] Vitals/I&O/Wt Last Vital Signs Temp 98.4 F 12/30/19 08:44 Pulse 65 12/30/19 13:27 Resp 14 12/30/19 08:54 BP 110/62 12/30/19 13:27 Pulse Ox 92 12/30/19 13:27 Weight last 48 hrs Weight 219 lb 12.997 oz Physical Exam HENMT: COMMON NORMALS: normocephalic HEAD & SCALP: normocephalic Eye: COMMON NORMALS: EOMs intact bilaterally and conjunctivae normal CONJUNCTIVA: Yes conjunctivae normal Chest: COMMONS NORMALS: inspection of chest normal Resp: COMMON NORMALS: normal respiratory effort, no use of accessory muscles and clear to auscultation bilaterally AUSCULTATION: clear to auscultation bilaterally Cardio: COMMON NORMALS: regular rate, regular rhythm and S1 normal heart sound RATE: regular rate RHYTHM: regular rhythm HEART SOUNDS: S1 normal Extremity: NARRATIVE EXTREMITY EXAM: There is market erythema of the left lower extremity critically involving the distal one third. There are rolando gangrenous changes to the entire left second toe as well as palpable and radiographically visible gas formation in the forefoot midfoot and up to the calcaneal region and most distal portion of the ankle. Previously documented DM of 0.3 with proximal stenosis Psych: COMMON NORMALS: negative for mental status grossly normal Data Micro: Micro: Microbiology 12/30/19 09:20 Blood Culture - Pr eliminary Blood SPECIMEN [facility] 12/30/19 09:23 Blood Culture - Pr eliminary Blood SPECIMEN [facility] A&P Assessment and plan (1) Gas gangrene: 84-year-old gentleman who is a resident of a local skilled care facility and with advanced dementia. He had now has worsening ischemic changes to his left lower extremity as previously documented and noted on ER visit from December 25. There is no evidence for subcutaneous gas formation but obviously a completely gangrenous left second toe. I feel he has a sending cellulitis with gas formation which prompts an urgent operation and should include at least a below-knee amputation and probable above-knee. I understand he has noted peripheral vascular disease as previously recorded, however, given the now new onset gas formation, I feel a more pressing matter is to control this acsending infectious process. I have conferred with daughter concerning this matter in seeking her consent and approval for planned amputation. I feel this is an urgent matter. Status: Acute Code(s): A48.0 - Gas gangrene Consult Attestations Medical Necessity Statement: Acsending gas gangrene of the left lower extremity with rolando gangrene of the left second toe Time Spent in Patient Care: Greater than 35 minutes Coding Level of Care Code Acute Paper Finisher for [facility] Fwd Exam Detailed Diagnoses Gas gangrene A48.0
--- NOTE | 2019-12-30 15:06 | PC.NURSE ---
Surgical packet in chart. Patient placed in gown. Family at bedside.
--- NOTE | 2019-12-30 15:50 | P.ANESASSM_ITS ---
Pre-Anesthetic Assessment Pre-Anesthetic Assessment: Height/Weight: Height 1.83 m Weight 99.705 kg Temp Pulse Resp BP Pulse Ox 98.4 F 75 14 88/49 94 12/30/19 08:44 12/30/19 15:07 12/30/19 15:07 12/30/19 15:07 12/30/19 15:07 Preop Diagnosis: left LE cellulitis/gangrene Proposed Procedure: Operation Date: 12/30/19 16:00 Proposed Procedures p BKA (Below Knee Amputation)(Left) - Obdulio Conrad MD Last Intake: 11:00 Social: Comment: quit 80 Exam: Pre-Anes Outpt Exam: alert, oriented x 3, clear to auscultation bilaterally and regular rate & rhythm Airway: Dentition: False CV/HEM: CV/HEM: Anemia and HTN : Comments: issues in past with kidenys/bladder resolved Metabolic: Metabolic: DM Comments: rx'd 40_ Neuropsych: Neuropsych: Dementia and PICKETT Anesthetic Plan: ASA status: 3E Anesthesia: General Meds/Allergies Current Medications: Current Medications Generic Name Dose Route Start Last Admin Trade Name Freq PRN Reason Stop Dose Admin Vancomycin HCl 1,5 00 mg/ 250 mls @ 166.667 mls/hr 12/30/19 11:30 12/30/19 11:47 Sodium Chloride IV 166.7 mls/hr Q18H SHERRON Administration Protocol PFSH Anesthesia PFSH: Medical History (Updated 12/30/19 @ 15:06 by Obdulio Conrad MD) Dementia Depressed Diabetes Gas gangrene Gout History of skin cancer Hyperlipemia Parkinson disease Surgical History (Updated 12/30/19 @ 13:24 by Alejandra Marroquin DO) History of eyelid surgery History of surgical procedure on eye proper using laser S/P cervical spinal fusion Family History (Updated 12/30/19 @ 13:25 by Alejandra Marroquin DO) Other Cancer Dementia Diabetes Social History (Updated 12/30/19 @ 13:26 by Alejandra Marroquin DO) Smoking and tobacco status: former smoker Alcohol intake: former Substance/Drug Use: never Marital status: / Pooja/Samaritan: Orthodoxy Additional social history: group home resident at [facility] Data Anesthesia CBC & Chem 7: 12/30/19 09:23 12/30/19 09:23 Other Labs: Laboratory Results - last 48 hr 12/30/19 12/30/19 12/30/19 09:23 09:23 09:23 WBC 20.0 H RBC 3.44 L Hgb 9.9 L Hct 31.8 L MCV 92.4 MCH 28.8 MCHC 31.1 RDW 13.9 Plt Count 388 MPV 10.1 Neut % (Auto) 85.5 Lymph % (Auto) 6.9 Hutchinson % (Auto) 4.9 Eos % (Auto) 0.1 Baso % (Auto) 0.2 Neut # (Auto) 17.1 H Lymph # (Auto) 1.4 Hutchinson # (Auto) 1.0 H Eos # (Auto) 0.0 Baso # (Auto) 0.0 Nucleated RBC % (auto) 0 Nucleated RBCs # 0.0 Sodium 139 Potassium 3.9 Chloride 101 Carbon Dioxide 25 Anion Gap 16.9 BUN 27 H Creatinine 1.2 Glucose 303 H Lactate 1.9 Calcium 9.5 Total Bilirubin 0.6 AST 21 ALT 54 H Alkaline Phosphatase 288 H Total Protein 6.8 Albumin 2.7 L Globulin 4.1 Micro: Microbiology 12/30/19 09:20 Blood Culture - Preliminary Blood SPECIMEN COLLECTED 12/30/19 09:23 Blood Culture - Preliminary Blood SPECIMEN COLLECTED Cardiac Studies: No Data to Display
[2019-12-30 16:03] LABS: Glucose Point of Care 188 mg/dL (70-110)
[2019-12-30] MEDS: sodium chloride 0.9% 1,000 ML 30 ML IV (16:10)
[2019-12-30] MEDS: vancomycin 1,000 MG SDV 1000 MG XX (16:49)
--- NOTE | 2019-12-30 18:06 | SUR.OPER ---
1715 - Pt's daughter updated via OPS nurse 1805 - Pt's daughter updated on surgery progress and pt status via her cell phone.
--- NOTE | 2019-12-30 19:06 | PM.OP ---
Operative Report Date of procedure: December 30, 2019 Pre-op Diagnosis: left LE cellulitis/gangrene Post-op diagnosis: same Procedure Done: Left above-knee amputation Specimens removed/disposition: Left leg Surgeon: Obdulio Conrad Anesthesia: General Estimated blood loss (mL): 150 Complications: None Condition: stable Disposition: ICU Brief History: 84-year-old resident of [facility] presents with gas gangrene of the left foot and distal leg. He has an ulceration over the second metatarsal head on the plantar surface as well as a completely gangrenous left second toe. This gas formation is occurred within the last 4 days when he had previously presented to the ER and was placed on oral antibiotics. He is not conversive. He has been at [facility] for 4-5 years with dementia. I discussed the situation with his daughter who is given consent for amputation. Given the rapid gas formation present along with market erythema and skin changes to the mid and proximal leg, we have recommended above-knee amputation. Procedure: Mr. Guillen was taken to the operating room and placed on the OR table in the supine position. He underwent general endotracheal anesthesia. The entire left lower extremity was sterilely prepped and draped. Left thigh was marked for incision line. #10 scalpel blade was utilized to circumferentially incise the skin in a fishmouth pattern. Anterior musculature was sharply divided utilizing scalpel and minimal use of cautery. Periosteal elevator was used for dissecting the periosteum off of the femur. Oscillating saw was utilized to divide the femur. Amputation knife was then used posteriorly to complete amputation of the [left/right] lower extremity. Meticulous inspection was carried out and hemostasis was controlled with minimal use of cautery, surgical clips, and suture ligature as required. The superficial femoral artery was controlled, retracted proximally, ligated and divided. The sciatic nerve was dissected proximally, ligated, and divided. The wound was irrigated with large amounts of antibiotic solution. Hemostasis was confirmed. A large Hemovac drain was placed beneath the fascia. The fascia was reapproximated with interrupted 0 and 2-0 Vicryl suture. Skin was reapproximated in an interrupted mattress fashion with monofilament suture. Sterile dressings were applied followed by a bulky dressing. The patient tolerated the procedure well and was taken to the ICU. I did program counselor with his daughter at completion of procedure.
[2019-12-30] MEDS: lactated ringers 1,000 ML 100 ML IV (19:09)
[2019-12-30] MEDS: memantine 5 mg tablet 10 MG PO (20:21)
[2019-12-30] MEDS: gabapentin 300 mg Capsule PO (20:21)
[2019-12-30] MEDS: risperiDONE 1 mg Tablet PO (20:22)
[2019-12-30] MEDS: OXcarbazepine 300 mg Tablet 150 MG PO (20:22)
[2019-12-30] MEDS: piperacillin-tazobactam 3.375 GM in sodium chloride 0.9% (plus) 50 ML IV (20:23)
[2019-12-30] MEDS: morphine 4 mg/mL SDV 1 mL 2 MG IVP (20:52)
[2019-12-30] MEDS: HYDROcodone-acetaminophen 5-325 mg Tablet 1 TAB PO (21:32)
--- NOTE | 2019-12-30 22:20 | SUR.PHASEI ---
Patient into ICU via bed from OR. Recovery started at 184. Recovery ended at 1914, patient remains in ICU due to concerns of O2 saturation and hemodynamic instability. 1:1 sitter at bedside as ordered. I&O charted in I&O.
[2019-12-31] VITALS (11 sets, daily range): BP systolic 90–144; BP diastolic 40–71; PULSE 55–98; RESP 12–20; TEMP 36.4–37.7; O2SAT 90–97
[2019-12-31 00:18] LABS: Glucose Point of Care 279 mg/dL (70-110)
[2019-12-31 00:18] LABS: Glucose Point of Care 205 mg/dL (70-110)
[2019-12-31] MEDS: piperacillin-tazobactam 3.375 GM in sodium chloride 0.9% (plus) 50 ML IV ×2 (03:20→12:08)
[2019-12-31 04:12] LABS: Basophils % 0.2 %; Eosinophils # 0.1 10^3/uL (0.0-0.8); Eosinophils % 0.7 %; Hematocrit 28.3 % (42.0-52.0); Lymphocytes # 1.9 10^3/uL (0.8-4.8); Lymphocytes % 13.2 %; Mean Corpuscular HGB Conc 31.8 g/dL (30.0-36.0); Mean Corpuscular Hemoglobin 28.8 pg (28.0-34.0); Mean Corpuscular Volume 90.7 fL (80-94); Mean Platelet Volume 10.3 fL (7.4-10.4); Monocytes # 0.6 10^3/uL (0.2-0.9); Monocytes % 4.4 %; Neutrophils # 11.6 10^3/uL (1.8-7.7); Neutrophils % 79.5 %; Nucleated Red Blood Cells % 0 %; Platelet Count 359 10^3/cmm (130-400); Red Blood Count 3.12 10^6/uL (4.1-5.3); Red Cell Distribution Width 14.3 % (12.1-15.1); White Blood Count 14.6 10^3/uL (4.0-10.0)
[2019-12-31 04:31] LABS: Blood Urea Nitrogen 34 mg/dL (8-23); Calcium 8.5 mg/dL (8.5-10.5); Carbon Dioxide 25 mmol/L (22-29); Chloride 103 mmol/L (98-107); Glucose 173 mg/dL (65-115); Osmolality Calculated 289 mOsm/kg (285-295); Sodium 139 mmol/L (136-145)
[2019-12-31] MEDS: lactated ringers 1,000 ML 100 ML IV (05:06)
--- NOTE | 2019-12-31 06:37 | P.PN_ITS ---
Subjective Subjective: Interval history: Postop day #1 status post left above-knee amputation for gas gangrene. Nurses report he had an uneventful night. He actually is communicative. He did eat some pudding. He became more somnolent when he received all of his normal dementia medications. TRAVIS drain output 65 cc overnight. Dressing is in place and dry. I do note he has hemoglobin is 9 this morning, this may subjective the delusional in part as his intake and output is up about 2 L. White count has substantially decreased from 20,000-down to 15,000. Vitals/I&O/Wt Last Vital Signs Temp 97.6 F 12/31/19 02:00 Pulse 56 L 12/31/19 06:00 Resp 12 12/31/19 06:00 BP 90/49 12/31/19 06:00 Pulse Ox 94 12/31/19 06:00 12/30/19 12/30/19 12/31/19 14:59 22:59 06:59 Intake Total 250 / 250 1635 / 1885 1095 / 2980 Output Total 400 / 400 340 / 740 Balance 250 / 250 1235 / 1485 755 / 2240 Weight last 48 hrs Weight 205 lb 3.2 oz Weight 219 lb 12.997 oz Physical Exam Extremity: OTHER: Left AKA dressing is in place. TRAVIS drain 65 cc overnight. Urinary Catheter Management^: Paul: Cath Placed During This Visit: yes Urethral Indwelling: Yes Reason for Continuing Indwelling Catheter: Accurate Measurement of Urinary Output in Critically Ill Patients Urinary Catheter Date of Insertion: 12/30/19 Urinary Catheter Time of Insertion: 16:35 Data : 12/31/19 03:40 12/31/19 03:40 Micro: Microbiology 12/30/19 20:03 Blood Culture - Preliminary Blood SPECIMEN COLLECTED 12/30/19 20:06 Blood Culture - Preliminary Blood SPECIMEN COLLECTED 12/30/19 09:20 Blood Culture - Preliminary Blood SPECIMEN COLLECTED 12/30/19 09:23 Blood Culture - Preliminary Blood SPECIMEN COLLECTED A&P Assessment and plan (1) Status post above-knee amputation of left lower extremity: Postop day #1. Will transfer to [facility]. Plan to leave TRAVIS drain in at least 1 more day and remove dressing tomorrow. Further management as per our hospitalist colleagues. 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 Time Spent in Patient Care: less than 15 minutes Coding Level of Care Code Acute Template Storage Clerk for [facility] Fwd Diagnoses Status post above-knee amputation of left lower extremity Z89.612
[2019-12-31 07:46] LABS: Glucose Point of Care 197 mg/dL (70-110)
--- NOTE | 2019-12-31 09:17 | PC.NURSE ---
Patient very sedated. Opens eyes half way after repeated voice requests. PT here to attempt to get patient up and sitting on the side of the bed. Patient spoke a few words, unintelligible and patient unable to sit up without 2 people holding him up. PO meds held due to patient's somnolent level.
[2019-12-31] MEDS: pantoprazole 40 mg SDV IVP (09:22)
--- NOTE | 2019-12-31 09:58 | PC.NURSE ---
Patient transferred to room 277 on bed with O2.
[2019-12-31 11:11] LABS: Glucose Point of Care 164 mg/dL (70-110)
[2019-12-31 11:14] LABS: Glucose Point of Care 170 mg/dL (70-110)
[2019-12-31] MEDS: HYDROcodone-acetaminophen 5-325 mg Tablet 1 TAB PO ×2 (11:16→20:47)
--- NOTE | 2019-12-31 11:49 | ANE.PACU2 ---
 Inpatient post-anesthesia follow up: Airway intact: Yes Vital signs: Temperature 98.4 F Pulse Rate [Right] 65 Pulse Rate 70 Respiratory Rate 16 Blood Pressure [Ri ght Arm] 110/62 Blood Pressure 108/66 Pulse Oximetry 92 Oxygen Delivery Me thod [Rate & Nasal Cannula Delivery Changed T o] Oxygen Delivery Me thod [ Nasal Cannula Current Rate & Del beatriz] Oxygen Delivery Me thod Nasal Cannula Oxygen Flow Rate [ Rate & 4 Delivery Changed T o] Oxygen Flow Rate [ Current Rate 4 & Delivery] Oxygen Flow Rate 4 Fraction of Inspir ed Oxygen Hydration adequate: Yes Nausea and vomiting: No Mental status: Baseline
--- NOTE | 2019-12-31 15:09 | PM.PN ---
Subjective Subjective: Interval history: Patient in ICU at time of exam this morning. He would open his eyes when asking him questions. He would respond to his name. He denied any chest pain or shortness of breath. Continues to have some confusion secondary to dementia. RN at bedside reported some sleepiness this morning Vitals/I&O/Wt Last Vital Signs Temp 98.4 F 12/31/19 11:44 Pulse 82 12/31/19 14:42 Resp 16 12/31/19 11:44 BP 108/66 12/31/19 11:44 Pulse Ox 92 12/31/19 14:42 12/31/19 12/31/19 12/31/19 06:59 14:59 22:59 Intake Total 1095 / 2980 845 / 845 Output Total 340 / 740 0 / 0 60 / 60 Balance 755 / 2240 845 / 845 -60 / 785 Weight last 48 hrs Weight 93.077 kg Weight 99.705 kg Physical Exam Const: EXAM LIMITATIONS: altered mental status ORIENTATION/CONSCIOUSNESS: Yes confused HENMT: COMMON NORMALS: normocephalic and head/scalp atraumatic HEAD & SCALP: normocephalic and atraumatic Eye: COMMON NORMALS: PERRL PUPIL: Yes PERRL Neck/C-Spine: COMMON NORMALS: supple GENERAL: Yes normal visual inspection Resp: COMMON NORMALS: normal respiratory effort and clear to auscultation bilaterally AUSCULTATION: clear to auscultation bilaterally, no rhonchi and no wheezes Cardio: COMMON NORMALS: regular rate, regular rhythm and no murmurs RATE: regular rate RHYTHM: regular rhythm GI: COMMON NORMALS: soft to palpation and non-tender INSPECTION: No abdominal distension AUSCULTATION: Yes normoactive bowel sounds PALPATION: Yes soft Extremity: OTHER: Left AKA dressing in place with TRAVIS drain Neuro: OTHER: Patient with chronic dementia and chronic confusion, will open his eyes and follows some questions appropriately. Psych: COMMON NORMALS: cooperative Skin: NARRATIVE SKIN EXAM: Dressing in place over the left lower extremity status post AKA Urinary Catheter Management^: Paul: Cath Placed During This Visit: yes Urethral Indwelling: Yes Reason for Continuing Indwelling Catheter: Accurate Measurement of Urinary Output in Critically Ill Patients Urinary Catheter Date of Insertion: 12/30/19 Urinary Catheter Time of Insertion: 16:35 Data : 12/31/19 03:40 12/31/19 03:40 Micro: Microbiology 12/30/19 09:20 Blood Culture - Preliminary Blood NEGATIVE TO DATE 12/30/19 09:23 Blood Culture - Preliminary Blood NEGATIVE TO DATE 12/30/19 20:03 Blood Culture - Preliminary Blood SPECIMEN COLLECTED 12/30/19 20:06 Blood Culture - Preliminary Blood SPECIMEN COLLECTED A&P Assessment and plan (1) Cellulitis of foot, left: Postop day #1 status post [id number] amputation of the left lower extremity due to gas gangrene We will follow-up with recommendations from Dr. Conrad. Appreciate consultation. 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 Continue sitter Buspirone 15 mg 3 times daily, oxcarbazepine 150 mg twice daily, Namenda 10 mg 2 times daily, on mirtazapine 7.5 mg daily, duloxetine 30 mg Holding risperidone 1 mg 3 times daily due to sedation Status: Acute Code(s): F03.90 - Unspecified dementia without behavioral disturbance Additional A&P Information Acute kidney injury: Renal function appears to be at baseline, creatinine at 1.0 today Hypertension: Blood pressure soft, hold amlodipine and losartan Patient has been on prophylactic dose of Tamiflu due to being a group home resident BPH: Continue home Flomax Anemia: No evidence of any active bleeding, will continue to monitor closely in the postoperative setting, hemoglobin down to 9 today Recent positive blood culture, this was reported from blood culture that was collected on 12/25/2019, 1 out of 4 bottles positive for coagulase-negative Staphylococcus, likely contamination. Repeat blood cultures ordered and pending DVT prophylaxis:SCD to R LE, no pharmacologic prophylaxis due to anemia Diet: Carbohydrate consistent diet CODE STATUS: Do Not Resuscitate/DNI, this was discussed with patient's daughter at bedside who is his healthcare DPOA Attestations Medical Necessity Statement*: Patient requires continued hospitalization due to gas creating green of the left foot status post [id number] amputation. Coding Level of Care Code Acute Steamtable Worker for [facility] Fwd Diagnoses Cellulitis of foot, left L03.116 Diabetes E11.9 Dementia F03.90
[2019-12-31] MEDS: cefepime 2,000 MG in sodium chloride 0.9% (plus) 50 ML 100 MG IV (15:57)
[2019-12-31 17:12] LABS: Glucose Point of Care 141 mg/dL (70-110)
[2019-12-31] MEDS: gabapentin 300 mg Capsule PO (18:23)
[2019-12-31] MEDS: memantine 5 mg tablet 10 MG PO (18:23)
[2019-12-31] MEDS: OXcarbazepine 300 mg Tablet 150 MG PO (18:24)
[2019-12-31 21:31] LABS: Glucose Point of Care 138 mg/dL (70-110)
[2019-12-31 23:45] LABS: Vancomycin Trough 10.7 ug/mL (10-15)
[2020-01-01] VITALS (14 sets, daily range): BP systolic 151–184; BP diastolic 54–85; PULSE 63–95; RESP 16–24; TEMP 36.9–37.6; O2SAT 86–95
[2020-01-01 04:08] LABS: Basophils % 0.3 %; Eosinophils # 0.2 10^3/uL (0.0-0.8); Eosinophils % 1.3 %; Hematocrit 32.3 % (42.0-52.0); Hemoglobin 10.3 g/dL (11.7-16.6); Lymphocytes # 1.7 10^3/uL (0.8-4.8); Mean Corpuscular HGB Conc 31.9 g/dL (30.0-36.0); Mean Corpuscular Hemoglobin 30.1 pg (28.0-34.0); Mean Corpuscular Volume 94.4 fL (80-94); Mean Platelet Volume 10.3 fL (7.4-10.4); Monocytes # 0.6 10^3/uL (0.2-0.9); Neutrophils # 11.1 10^3/uL (1.8-7.7); Neutrophils % 80.4 %; Nucleated Red Blood Cells % 0 %; Platelet Count 414 10^3/cmm (130-400); Red Blood Count 3.42 10^6/uL (4.1-5.3); Red Cell Distribution Width 14.5 % (12.1-15.1); White Blood Count 13.8 10^3/uL (4.0-10.0)
[2020-01-01] MEDS: cefepime 2,000 MG in sodium chloride 0.9% (plus) 50 ML 100 MG IV ×2 (04:40→15:35)
[2020-01-01 05:17] LABS: Anion Gap 14.9 (5-19); Blood Urea Nitrogen 19 mg/dL (8-23); Calcium 8.7 mg/dL (8.5-10.5); Carbon Dioxide 24 mmol/L (22-29); Chloride 106 mmol/L (98-107); Glucose 107 mg/dL (65-115); Osmolality Calculated 289 mOsm/kg (285-295); Potassium 3.9 mmol/L (3.5-5.1); Sodium 141 mmol/L (136-145)
[2020-01-01 06:29] LABS: Glucose Point of Care 86 mg/dL (70-110)
[2020-01-01] MEDS: aspirin 81 mg Chew Tablet PO (10:10)
[2020-01-01] MEDS: duloxetine 30 mg Capsule PO (10:12)
[2020-01-01] MEDS: gabapentin 300 mg Capsule PO ×2 (10:13→17:26)
[2020-01-01] MEDS: memantine 5 mg tablet 10 MG PO ×2 (10:14→17:25)
[2020-01-01] MEDS: lactobacillus 1 Tablet 1 TAB PO (10:14)
[2020-01-01] MEDS: mirtazapine 15 mg Tablet 7.5 MG PO (10:15)
[2020-01-01] MEDS: OXcarbazepine 300 mg Tablet 150 MG PO ×2 (10:17→17:25)
[2020-01-01] MEDS: tamsulosin 0.4 mg Capsule PO (10:19)
[2020-01-01] MEDS: risperiDONE 1 mg Tablet PO ×3 (10:19→21:26)
[2020-01-01] MEDS: pantoprazole 40 mg SDV IVP (10:28)
[2020-01-01 11:31] LABS: Glucose Point of Care 126 mg/dL (70-110)
--- NOTE | 2020-01-01 11:36 | XR_ITS ---
WS: [id number] PORTABLE CHEST HISTORY: symptomatic, short of breath. COMPARISON: 02/28/2017 and 11/25/2011 Elevated RIGHT hemidiaphragm. Increased density along the fissure suggesting pleural fluid. There is also volume loss at the RIGHT lung base. Partial atelectasis RIGHT lower lobe or eventration of the d iaphragm. Pulmonary venous congestion is mild but new. Small RIGHT pleural effusion. Cardiac size: Mildly enlarged cardiac silhouette. Mediastinum/Aorta: Normal mediastinum. No osseous abnormality seen. XR/XR chest 1V portable [id number] IMPRESSION: 1. Volume loss RIGHT lower lung field. Eventration of the diaphragm versus pa rtial atelectasis of the RIGHT lower lobe with a small amount of pleural fluid. 2. Mild CHF.
--- NOTE | 2020-01-01 11:36 | ECG_ITS ---
Measurements Intervals [place] Rate: 67 P: RI: 0 QRS: 57 QRSD: 95 T: 68 QT: 406 QTc: 430 ATRIAL FIBRILLATION ABNORMAL RHYTHM ECG Compared to ECG 02/28/2017 17:31:46 Sinus rhythm no longer present First degree AV block no longer present Electronically Signed On 01-01-2020 15:18:36 SOLUTION MAKER by Alpesh Reese M.D. [id number]
[2020-01-01] MEDS: HYDROcodone-acetaminophen 5-325 mg Tablet 1 TAB PO (12:03)
[2020-01-01] MEDS: FUROsemide 10 mg/mL SDV 4mL 40 MG IVP (12:10)
--- NOTE | 2020-01-01 12:36 | PM.EVENT ---
Event Note Event Note: Went to see patient secondary to episode of hypoxia, diaphoresis. Patient is verbal but cannot relate how he feels secondary to underlying dementia. Nursing found patient with his oxygen off, typically on 2 L, with an oxygen saturation less than 80% and diaphoresis. Vital signs including glucose were checked and otherwise normal. EKG was performed demonstrating sinus rhythm with first-degree AV block, occasional short pauses, normal axis and probably no acute changes. Troponin was ordered. Chest x-ray reviewed which demonstrated slight amount of fluid overload, right hemidiaphragm elevation versus eventration. Cannot exclude effusion. Lasix 40 mg IV given. Will await laboratory. By the time evaluation was complete patient appeared to be doing much better. When placed back on oxygen his saturation was 90% or greater. Diaphoresis was less.
[2020-01-01 12:41] LABS: Troponin(5th) Baseline 57 ng/mL (0-15)
[2020-01-01] MEDS: ipratropium-albuterol 3 mL Neb INHALATION ×3 (13:33→20:06)
--- NOTE | 2020-01-01 13:41 | P.PN_ITS ---
Subjective Subjective: Interval history: Patient awake in bed with sitter at bedside earlier this morning. He was pleasantly confused, he was speaking, however did not answer questions appropriately due to dementia. Called later today by RN due to patient being found diaphoretic with hypoxia. CXR and EKG ordered STAT. Vitals/I&O/Wt Last Vital Signs Temp 99.1 F 01/01/20 12:01 Pulse 72 01/01/20 13:35 Resp 20 H 01/01/20 13:30 BP 157/75 01/01/20 12:01 Pulse Ox 93 01/01/20 13:30 12/31/19 01/01/20 01/01/20 22:59 06:59 14:59 Intake Total 390 / 1485 120 / 120 Output Total 1350 / 1350 465 / 1815 Balance -960 / 135 -465 / -330 100 / 100 Weight last 48 hrs Weight 102.467 kg Weight 94.007 kg Weight 93.077 kg Physical Exam Const: EXAM LIMITATIONS: altered mental status ORIENTATION/CONSCIOUSNESS: Yes confused HENMT: COMMON NORMALS: normocephalic and head/scalp atraumatic HEAD & SCALP: normocephalic and atraumatic Eye: COMMON NORMALS: PERRL PUPIL: Yes PERRL Neck/C-Spine: COMMON NORMALS: supple GENERAL: Yes normal visual inspection Resp: COMMON NORMALS: normal respiratory effort AUSCULTATION: no rhonchi and no wheezes OTHER: diminished breath sounds bilaterally Cardio: COMMON NORMALS: regular rate, regular rhythm and no murmurs RATE: regular rate RHYTHM: regular rhythm GI: COMMON NORMALS: soft to palpation and non-tender INSPECTION: No abdominal distension AUSCULTATION: Yes normoactive bowel sounds PALPATION: Yes soft Extremity: OTHER: Left AKA dressing in place with TRAVIS drain Neuro: OTHER: Patient with chronic dementia and chronic confusion, awake during exam Psych: COMMON NORMALS: cooperative Skin: NARRATIVE SKIN EXAM: Dressing in place over the left lower extremity status post AKA Urinary Catheter Management^: Paul: Cath Placed During This Visit: yes Urethral Indwelling: Yes Reason for Continuing Indwelling Catheter: Required Immobilization for Trauma or Surgery or Anesthesia Urinary Catheter Date of Insertion: 12/30/19 Urinary Catheter Time of Insertion: 16:35 Data : 01/01/20 04:01 01/01/20 04:25 Micro: Microbiology 12/30/19 20:03 Blood Culture - Preliminary Blood NEGATIVE TO DATE 12/30/19 20:06 Blood Culture - Preliminary Blood NEGATIVE TO DATE 12/30/19 09:20 Blood Culture - Preliminary Blood NEGATIVE TO DATE 12/30/19 09:23 Blood Culture - Preliminary Blood NEGATIVE TO DATE A&P Assessment and plan (1) Cellulitis of foot, left: Postop day #2 status post [id number] amputation of the left lower extremity due to gas gangrene We will follow-up with recommendations from Dr. Conrad. Appreciate consultation. Continue IV antibiotics at this time due to elevated temperature and leukocytosis. blood cultures with no growth to date Status: Acute Code(s): L03.116 - Cellulitis of left lower limb (2) Diabetes: Continue with decreased dose of Levemir 15 units at bedtime Moderate dose sliding scale insulin as needed Status: Acute Code(s): E11.9 - Type 2 diabetes mellitus without complications (3) Dementia: alcoholic dementia Continue sitter due to recent surgery and fall risk Buspirone 15 mg 3 times daily, oxcarbazepine 150 mg twice daily, Namenda 10 mg 2 times daily, on mirtazapine 7.5 mg daily, duloxetine 30 mg restarted risperidone 1 mg 3 times daily Status: Acute Code(s): F03.90 - Unspecified dementia without behavioral disturbance Additional A&P Information Acute kidney injury: resolved Hypertension: restart amlodipine today and given Lasix due to concern for fluid overload Anemia: postoperative on chronic, s/p transfusion Patient has been on prophylactic dose of Tamiflu due to being a retirement resident BPH: Continue home Flomax Fluid overload: given IV lasix today, RTAT, oxygen per protocol COPD Recent positive blood culture, this was reported from blood culture that was collected on 12/25/2019, 1 out of 4 bottles positive for coagulase-negative Staphylococcus, likely contamination. Repeat blood cultures ordered and pending DVT prophylaxis:SCD to R LE, no pharmacologic prophylaxis due to anemia and patient being very high fall risk and dementia and now AKA and is not a candidate for [facility] anticoagulation Diet: Carbohydrate consistent diet CODE STATUS: Do Not Resuscitate/DNI, this was discussed with patient's daughter who is his healthcare DPOA Attestations Medical Necessity Statement*: Patient requires further hospitalization s/p AKA due to gas gangrene Coding Level of Care Code Acute Ditching Machine Operating Engineer for Chg Fwd Diagnoses Cellulitis of foot, left L03.116 Diabetes E11.9 Dementia F03.90
[2020-01-01 14:51] LABS: Troponin 5 2HR 57.15 ng/mL (0-15); Troponin 5 2HR Delta 0.15 ABS# (0-10)
[2020-01-01] MEDS: bisacodyl 10 mg Supp PR (16:34)
[2020-01-01] MEDS: amlodipine 5 mg Tablet PO (16:49)
[2020-01-01 17:12] LABS: Glucose Point of Care 131 mg/dL (70-110)
--- NOTE | 2020-01-01 17:48 | ECG_ITS ---
Measurements Intervals [place] Rate: 69 P: VA: 0 QRS: 27 QRSD: 91 T: 56 QT: 415 QTc: 446 SINUS RHYTHM WITH Mobitz type 1 AV block Compared to ECG 01/01/2020 11:44:20 No significant changes Electronically Signed On 01-03-2020 11:23:17 STATE FARM AGENT by Brenna Rojas M.D. [id number]
[2020-01-01 19:21] LABS: Troponin 5 6HR 54.93 ng/mL (0-15)
[2020-01-01 19:29] LABS: Troponin 5 6HR Delta -2.07 ng/L (0-12)
[2020-01-01 20:52] LABS: Glucose Point of Care 192 mg/dL (70-110)
[2020-01-02] VITALS (19 sets, daily range): BP systolic 120–197; BP diastolic 62–80; PULSE 59–93; RESP 16–24; TEMP 36.7–38; O2SAT 87–96
[2020-01-02] MEDS: ipratropium-albuterol 3 mL Neb INHALATION ×7 (00:14→23:43)
[2020-01-02] MEDS: cefepime 2,000 MG in sodium chloride 0.9% (plus) 50 ML 100 MG IV ×2 (04:25→17:03)
[2020-01-02 05:19] LABS: Basophils % 0.3 %; Eosinophils # 0.3 10^3/uL (0.0-0.8); Eosinophils % 2.3 %; Hematocrit 32.9 % (42.0-52.0); Hemoglobin 10.7 g/dL (11.7-16.6); Lymphocytes # 1.9 10^3/uL (0.8-4.8); Lymphocytes % 16.3 %; Mean Corpuscular HGB Conc 32.5 g/dL (30.0-36.0); Mean Corpuscular Hemoglobin 29.8 pg (28.0-34.0); Mean Corpuscular Volume 91.6 fL (80-94); Mean Platelet Volume 9.9 fL (7.4-10.4); Monocytes # 0.6 10^3/uL (0.2-0.9); Monocytes % 5.2 %; Neutrophils # 8.7 10^3/uL (1.8-7.7); Neutrophils % 73.3 %; Nucleated Red Blood Cells % 0 %; Platelet Count 471 10^3/cmm (130-400); Red Blood Count 3.59 10^6/uL (4.1-5.3); Red Cell Distribution Width 14.1 % (12.1-15.1); White Blood Count 11.8 10^3/uL (4.0-10.0)
[2020-01-02 05:45] LABS: Anion Gap 14.9 (5-19); Blood Urea Nitrogen 15 mg/dL (8-23); Calcium 8.8 mg/dL (8.5-10.5); Carbon Dioxide 27 mmol/L (22-29); Chloride 104 mmol/L (98-107); Glucose 186 mg/dL (65-115); Osmolality Calculated 295 mOsm/kg (285-295); Potassium 3.9 mmol/L (3.5-5.1); Sodium 142 mmol/L (136-145)
--- NOTE | 2020-01-02 06:36 | PM.PN ---
Subjective Subjective: Interval history: Afebrile this morning. Vital signs stable. EKG from yesterday was unremarkable and troponins are stable. I removed his surgical dressing yesterday removed the Hemovac drain. Incision line is intact, well approximated, without erythema or drainage. White blood cell counts continue to decrease, now down to 11.8 Vitals/I&O/Wt Last Vital Signs Temp 98.5 F 01/02/20 04:00 Pulse 75 01/02/20 04:00 Resp 18 01/02/20 04:00 BP 146/80 01/02/20 05:39 Pulse Ox 87 L 01/02/20 04:00 01/01/20 01/01/20 01/02/20 14:59 22:59 06:59 Intake Total 120 / 120 780 / 900 80 / 980 Output Total 2175 / 2195 490 / 2685 Balance 100 / 100 -1395 / -1295 -410 / -1705 Weight last 48 hrs Weight 202 lb 9 oz Weight 225 lb 14.4 oz Weight 207 lb 4 oz Physical Exam Extremity: OTHER: Dressing from yesterday remains in place. Urinary Catheter Management^: Paul: Cath Placed During This Visit: yes Urethral Indwelling: Yes Reason for Continuing Indwelling Catheter: Required Immobilization for Trauma or Surgery or Anesthesia Urinary Catheter Date of Insertion: 12/30/19 Urinary Catheter Time of Insertion: 16:35 Data : 01/02/20 04:50 01/02/20 04:50 A&P Assessment and plan (1) Status post above-knee amputation of left lower extremity: Postop day #3. Incision line intact. Afebrile. White count continues to decrease, now 11.8 I have previous conferred with my colleague Dr. Marroquin. I believe we may discontinue antibiotics at her discretion and patient may be transferred back to snf care. Should follow-up in my clinic in 1 week after discharge. Status: Acute Code(s): Z89.612 - Acquired absence of left leg above knee Attestations Medical Necessity Statement*: Status post left above-knee amputation secondary to gas gangrene Time Spent in Patient Care: less than 15 minutes Coding Level of Care Code Acute Victim Witness Administrator for [facility] Fwd Diagnoses Status post above-knee amputation of left lower extremity Z89.612
[2020-01-02 06:51] LABS: Glucose Point of Care 145 mg/dL (70-110)
--- NOTE | 2020-01-02 07:00 | XR_ITS ---
WS: [id number] Portable AP upright chest, 01/02/2020 Clinical Data: volume loss right lung Comparison: Portable chest, 01/01/2020 Findings: The probable right basilar effusion has diminished. There is atelectasis over the surface o f the right diaphragm. The left lung is clear. No nodules or masses are seen. The heart remains same. The pulmonary vascularity is not increased. Monitor leads are on the chest wall. There are metal fra gments adjacent to the medial aspect of the neck of the left humerus. XR/XR chest 1V portable [id number] Impression: 1. Decrease in right pleural effusion. 2. Decrease in pulmonary vascular congestion.
[2020-01-02] MEDS: lactobacillus 1 Tablet 1 TAB PO (09:02)
[2020-01-02] MEDS: mirtazapine 15 mg Tablet 7.5 MG PO (09:02)
[2020-01-02] MEDS: amlodipine 5 mg Tablet PO (09:02)
[2020-01-02] MEDS: tamsulosin 0.4 mg Capsule PO (09:02)
[2020-01-02] MEDS: memantine 5 mg tablet 10 MG PO ×2 (09:02→16:57)
[2020-01-02] MEDS: OXcarbazepine 300 mg Tablet 150 MG PO ×2 (09:03→16:57)
[2020-01-02] MEDS: pantoprazole 40 mg SDV IVP (09:03)
[2020-01-02] MEDS: gabapentin 300 mg Capsule PO ×2 (09:04→16:57)
[2020-01-02] MEDS: duloxetine 30 mg Capsule PO (09:04)
[2020-01-02] MEDS: aspirin 81 mg Chew Tablet PO (09:04)
[2020-01-02] MEDS: losartan 50 mg Tablet 100 MG PO (09:04)
[2020-01-02] MEDS: risperiDONE 1 mg Tablet PO ×3 (09:04→21:44)
--- NOTE | 2020-01-02 09:27 | PC.SOCIAL ---
IMM Update. Pg 2 of IMM given and explained to patient. Also called and explained to Alisha at [facility], as patient is confused and has 1:1 sitter. Copy left at bedside.
--- NOTE | 2020-01-02 10:39 | PC.NURSE ---
Agitation Upon entering the room, the patient was attempting to get OOB and was kicking PSA. The nurse attempted to redirect the patient but the patient began hitting the nurse. The patient removed stump dressing and began to pick at incision and sutures. The nurse notified Dr. Marroquin of the patient' activity. Nurse administered patient's medications and continued to monitor. Agitation resolved. Stump incision appears asymptomatic, nurse to redress wound.
--- NOTE | 2020-01-02 10:53 | PM.PN ---
Subjective Subjective: Interval history: Patient awake in bed at time of exam. He denied pain. Sitter at bedside due to dementia and recent surgery, AKA. Patient confused, baseline, at time of exam. Vitals/I&O/Wt Last Vital Signs Temp 98.1 F 01/02/20 08:00 Pulse 86 01/02/20 08:16 Resp 24 H 01/02/20 08:16 BP 162/75 01/02/20 09:04 Pulse Ox 93 01/02/20 08:16 01/01/20 01/02/20 01/02/20 22:59 06:59 14:59 Intake Total 780 / 900 80 / 980 Output Total 2175 / 2195 490 / 2685 Balance -1395 / -1295 -410 / -1705 Weight last 48 hrs Weight 91.881 kg Weight 102.467 kg Weight 94.007 kg Physical Exam Const: EXAM LIMITATIONS: altered mental status ORIENTATION/CONSCIOUSNESS: Yes confused HENMT: COMMON NORMALS: normocephalic and head/scalp atraumatic HEAD & SCALP: normocephalic and atraumatic Eye: COMMON NORMALS: PERRL PUPIL: Yes PERRL Neck/C-Spine: COMMON NORMALS: supple GENERAL: Yes normal visual inspection Resp: COMMON NORMALS: normal respiratory effort AUSCULTATION: no rhonchi and no wheezes OTHER: diminished breath sounds bilaterally, no wheezing or rhonchi, no crackles Cardio: COMMON NORMALS: regular rate, regular rhythm and no murmurs RATE: regular rate RHYTHM: regular rhythm GI: COMMON NORMALS: soft to palpation and non-tender INSPECTION: No abdominal distension AUSCULTATION: Yes normoactive bowel sounds PALPATION: Yes soft Extremity: OTHER: Left AKA dressing in place Neuro: OTHER: Patient with chronic dementia and chronic confusion, awake during exam Psych: COMMON NORMALS: cooperative Skin: NARRATIVE SKIN EXAM: Dressing in place over the left lower extremity status post AKA Urinary Catheter Management^: Bass: Cath Placed During This Visit: yes Urethral Indwelling: Yes Reason for Continuing Indwelling Catheter: Acute Urinary Retention or Obstruction Urinary Catheter Date of Insertion: 12/30/19 Urinary Catheter Time of Insertion: 16:35 Data : 01/02/20 04:50 01/02/20 04:50 A&P Assessment and plan (1) Cellulitis of foot, left: Postop day #3 status post [id number] amputation of the left lower extremity due to gas gangrene Dr. Conrad consulted Continue antibiotics Fever overnight, believe secondary to atalectasis. D/C bass today If remains afebrile will discontinue antibiotics and discharge back to SNF tomorrow Status: Acute Code(s): L03.116 - Cellulitis of left lower limb (2) Diabetes: Continue with decreased dose of Levemir 15 units at bedtime Moderate dose sliding scale insulin as needed Status: Acute Code(s): E11.9 - Type 2 diabetes mellitus without complications (3) Dementia: alcoholic dementia Continue sitter due to recent surgery and fall risk Buspirone 15 mg 3 times daily, oxcarbazepine 150 mg twice daily, Namenda 10 mg 2 times daily, on mirtazapine 7.5 mg daily, duloxetine 30 mg restarted risperidone 1 mg 3 times daily Status: Acute Code(s): F03.90 - Unspecified dementia without behavioral disturbance Additional A&P Information Acute kidney injury: resolved Hypertension: restarted amlodipine Anemia: postoperative on chronic, s/p transfusion Patient has been on prophylactic dose of Tamiflu due to being a [place] [facility] resident BPH: Continue home Flomax Fluid overload: improved CXR today COPD: no wheezing, wean with goal oxygen saturation of 90-92% Fever: believe secondary to atalectasis in post-operative setting. On broad spectrum antibiotics. If remains afebrile plan for discharge back to SNF tomorrow Recent positive blood culture, this was reported from blood culture that was collected on 12/25/2019, 1 out of 4 bottles positive for coagulase-negative Staphylococcus, likely contamination. Repeat blood cultures show no growth to date DVT prophylaxis:SCD to R LE, no pharmacologic prophylaxis due to anemia and patient being very high fall risk and dementia and now AKA and is not a candidate for group home anticoagulation Diet: Carbohydrate consistent diet CODE STATUS: Do Not Resuscitate/DNI, this was discussed with patient's daughter who is his healthcare DPOA Attestations Medical Necessity Statement*: continued hospitalization due to gangrene requiring AKA Coding Level of Care Code Acute Delinquent Tax Collection Assistant for [facility] Fwlucas Diagnoses Cellulitis of foot, left L03.116 Diabetes E11.9 Dementia F03.90
[2020-01-02] MEDS: HYDROcodone-acetaminophen 5-325 mg Tablet 1 TAB PO (10:57)
[2020-01-02 11:52] LABS: Glucose Point of Care 184 mg/dL (70-110)
[2020-01-02 17:52] LABS: Glucose Point of Care 171 mg/dL (70-110)
[2020-01-02 21:25] LABS: Glucose Point of Care 133 mg/dL (70-110)
[2020-01-03] VITALS (12 sets, daily range): BP systolic 127–151; BP diastolic 70–79; PULSE 65–90; RESP 18–21; TEMP 36.8–37.1; O2SAT 91–98
[2020-01-03] MEDS: cefepime 2,000 MG in sodium chloride 0.9% (plus) 50 ML 100 MG IV (03:24)
[2020-01-03] MEDS: ipratropium-albuterol 3 mL Neb INHALATION ×3 (03:53→11:53)
[2020-01-03] MEDS: HYDROcodone-acetaminophen 5-325 mg Tablet 1 TAB PO ×2 (04:27→12:47)
--- NOTE | 2020-01-03 05:39 | P.DS_ITS ---
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 Patient was started on broad-spectrum antibiotic coverage and taken to the OR. Patient underwent left kvxcd-oya-mxok amputation on 12/30/2019. He did well in the postoperative setting initially was managed closely in the ICU then later transitioned to the medical floor. He was continued on broad-spectrum antibiotics and blood cultures returned with no growth to date. He did have some postoperative fever, repeat chest x-ray was performed which showed no consolidation or pneumonia and he remained on broad- spectrum coverage. Patient did have an episode of flash pulmonary edema after receiving blood transfusion due to postoperative anemia received IV Lasix x1 and had improvement in respiratory status. Repeat chest x-ray was then performed which showed significant improvement and no further concern for fluid overload. Patient remained afebrile for 24 hours prior to discharge with cultures remaining negative he was determined to be stable for discharge back to the assisted facility. He is to follow-up with Dr. Conrad in 1 week. Antibiotics discontinued as patient had removal of infected limb Physical Exam Const: EXAM LIMITATIONS: altered mental status ORIENTATION/CONSCIOUSNESS: Yes confused HENMT: COMMON NORMALS: normocephalic and head/scalp atraumatic HEAD & SCALP: normocephalic and atraumatic Eye: COMMON NORMALS: PERRL PUPIL: Yes PERRL Neck/C-Spine: COMMON NORMALS: supple GENERAL: Yes normal visual inspection Resp: COMMON NORMALS: normal respiratory effort AUSCULTATION: no rhonchi and no wheezes OTHER: diminished breath sounds bilaterally, no wheezing or rhonchi, no crackles Cardio: COMMON NORMALS: regular rate, regular rhythm and no murmurs RATE: regular rate RHYTHM: regular rhythm GI: COMMON NORMALS: soft to palpation and non-tender INSPECTION: No abdominal distension AUSCULTATION: Yes normoactive bowel sounds PALPATION: Yes soft Extremity: OTHER: Left AKA dressing in place Neuro: OTHER: Patient with chronic dementia and chronic confusion, awake during exam Psych: COMMON NORMALS: cooperative Skin: NARRATIVE SKIN EXAM: Dressing in place over the left lower extremity status post AKA Urinary Catheter Management^: Paul: Cath Placed During This Visit: yes, but has since been removed by the nurse Urethral Indwelling: Yes Reason for Continuing Indwelling Catheter: Acute Urinary Retention or Obstruction Urinary Catheter Date of Insertion: 12/30/19 Urinary Catheter Time of Insertion: 16:35 Date Urinary Catheter Removed: 01/02/20 Time Urinary Catheter Discontinued: 14:07 Discharge Data Data Completed and Pending: Completed Studies During Hospitalization Category Date Time Status XR chest 1V kamilah ble 43020 Routine Exams 01/02/20 07:00 Completed XR chest 1V kamilah ble 88054 Stat Exams 01/01/20 11:36 Completed XR foot LT 2V 736 20 Stat Exams 12/30/19 09:12 [place] [address] Urge nt Ultrasound 12/30/19 13:16 Completed Pending at discharge Category Date Time Status Blood Culture Sta t Lab 12/30/19 09:20 Results Blood Culture Sta t Lab 12/30/19 20:03 Results Pathology: Surgic al [PTH] Routine Pth 12/30/19 17:50 Received Labs from last 24 hours 01/02/20 01/02/20 01/02/20 21:17 17:03 11:21 Sodium Potassium Chloride Carbon Dioxide Anion Gap BUN Creatinine Glucose POC Glucose 133 171 184 Calculated Osmolal ity Calcium Crossmatch 01/02/20 01/02/20 12/30/19 06:39 04:50 15:07 Sodium 142 Potassium 3.9 Chloride 104 Carbon Dioxide 27 Anion Gap 14.9 BUN 15 Creatinine 0.7 Glucose 186 H POC Glucose 145 Calculated Osmolal ity 295 Calcium 8.8 Crossmatch See Detail Vitals: Last Vital Signs Temp 98.7 F 01/03/20 04:00 Pulse 77 01/03/20 04:00 Resp 18 01/03/20 04:00 BP 151/75 01/03/20 04:00 Pulse Ox 91 01/03/20 04:00 Discharge Plan Discharge Patient Disposition: Xf SNF Condition: Stable Prescriptions: Continued multivitamin Tablet 1 tab PO DAILY RF: 0 oxcarbazepine 150 mg Tablet 150 mg PO BID RF: 0 amlodipine 5 mg Tablet 5 mg PO DAILY RF: 0 allopurinol 100 mg Tablet 200 mg PO DAILY RF: 0 pantoprazole 20 mg Tablet,Delayed Release (Dr/Ec) 20 mg PO DAILY RF: 0 tamsulosin [Flomax] 0.4 mg Capsule 0.4 mg PO DAILY RF: 0 glipizide 2.5 mg Tablet Extended Release 24hr 2.5 mg PO BID RF: 0 oseltamivir [Tamiflu] 75 mg Capsule 75 mg PO DAILY RF: 0 gabapentin 300 mg Capsule 300 mg PO BID RF: 0 aspirin 81 mg Tablet,Chewable 81 mg PO DAILY RF: 0 Lactobacillus acidophilus [Acidophilus] Capsule 10 mg PO DAILY RF: 0 losartan 100 mg Tablet 100 mg PO DAILY RF: 0 risperidone 1 mg Tablet 1 mg PO TID RF: 0 ciclopirox 0.77 % Gel 1 applic TOPICAL DAILY RF: 0 buspirone 15 mg Tablet 15 mg PO TID RF: 0 ciclopirox 1 % Shampoo 5 ml TOPICAL Q3D RF: 0 memantine [Namenda] 10 mg Tablet 10 mg PO BID RF: 0 mirtazapine 7.5 mg Tablet 7.5 mg PO DAILY RF: 0 Januvia 50 mg Tablet 50 mg PO DAILY RF: 0 TwoCal HN 0.08-2 gram-kcal/mL Liquid 60 ea PO TID RF: 0 hydrocodone-acetaminophen 5-325 mg Tablet 1 tab PO Q8H PRN (Reason: Pain) RF: 0 bisacodyl 10 mg Suppository 10 mg ME DAILY PRN (Reason: Constipation) RF: 0 acetaminophen [Tylenol] 325 mg Capsule 650 mg PO QID PRN (Reason: Fever) RF: 0 duloxetine 30 mg Capsule, Delayed Rel Sprinkle 30 mg PO DAILY RF: 0 Discontinued ciprofloxacin HCl 500 mg tablet 500 mg PO BID Qty: 20 RF: 0 amoxicillin-pot clavulanate 875-125 mg tablet 1 tab PO BID Qty: 20 RF: 0 Santyl 250 unit/gram Ointment 1 applic TOPICAL DAILY RF: 0 ibuprofen 200 mg Tablet 200 mg PO Q4H PRN (Reason: Pain) RF: 0 Discharge Orders: Discharge Order (Routine); Ordered 01/03/20 Ordered By: Alejandra Marroquin Referrals: Obdulio Conrad MD [Physician] - 1 week Wilma Todd DO [Family Provider] - 4-7 days Discharge Diet: Cardiac and Diabetic Discharge Activity: As per PT/OT instructions Activity Restrictions/Additional Instructions: Discharge back to assisted facility Increase diet as tolerated Increase activity as directed by surgeon, continue with wound care to the left AKA stump Continue on oxygen per protocol with a goal oxygen saturation of 90 to 92% Follow-up with primary care provider in 3 to 5 days Follow-up with Dr. Conrad in 1 week Discharge Attestations Time Spent in Discharge Care*: greater than 30 min Quality Metrics Clinical Quality Measures During this hospital stay, did patient experience: None Coding Level of Care Code Acute Learning Disabilities Teacher for g Fwd Diagnoses Cellulitis of foot, left L03.116 Diabetes E11.9 Dementia F03.90
[2020-01-03 06:44] LABS: Glucose Point of Care 133 mg/dL (70-110)
--- NOTE | 2020-01-03 07:29 | PC.PT ---
pt received medication due to combativeness/agitation;found to be from dementia unit,and therefore inapropriate for PT service,CARRIE PT.
[2020-01-03] MEDS: OXcarbazepine 300 mg Tablet 150 MG PO (08:32)
[2020-01-03] MEDS: tamsulosin 0.4 mg Capsule PO (08:32)
[2020-01-03] MEDS: memantine 5 mg tablet 10 MG PO (08:33)
[2020-01-03] MEDS: mirtazapine 15 mg Tablet 7.5 MG PO (08:33)
[2020-01-03] MEDS: amlodipine 5 mg Tablet PO (08:33)
[2020-01-03] MEDS: risperiDONE 1 mg Tablet PO (08:33)
[2020-01-03] MEDS: gabapentin 300 mg Capsule PO (08:33)
[2020-01-03] MEDS: duloxetine 30 mg Capsule PO (08:34)
[2020-01-03] MEDS: aspirin 81 mg Chew Tablet PO (08:34)
[2020-01-03] MEDS: lactobacillus 1 Tablet 1 TAB PO (08:34)
[2020-01-03] MEDS: losartan 50 mg Tablet 100 MG PO (08:34)
[2020-01-03] MEDS: pantoprazole 40 mg SDV IVP (08:41)
[2020-01-03 11:41] LABS: Glucose Point of Care 183 mg/dL (70-110)
[2020-01-03] MEDS: LORazepam 1 mg Tablet PO (11:54)
--- NOTE | 2020-01-03 12:37 | PC.NURSE ---
Discharge Report called to SÁNCHEZ Lock at [facility]. Nurse verbalized understanding of discharge information and did not have any further questions.
== END 2020-01-03 13:09 | disposition skilled nursing facility (03) | DRG 239 ==
LOC: ER 14:49 → OR 15:08 → ICU 18:16 → MEDSURG 12-31 09:56
PROVIDERS: Family Medicine; Internal Medicine; Admitting Provider Thoracic Surgery (Cardiothoracic Vascular Surgery); Emergency Provider Family Medicine; Family Provider Family Medicine; Visit Provider Thoracic Surgery (Cardiothoracic Vascular Surgery)
PROC: 0Y6D0Z1 Detachment at Left Upper Leg, High, Open Approach (ICD-10-PCS; CPT 27590; principal; 2019-12-30 16:00)
DX: E11.52 Type 2 diabetes mellitus with diabetic peripheral angiopathy with gangrene (principal); A48.0 Gas gangrene; L03.116 Cellulitis of left lower limb; N17.9 Acute kidney failure, unspecified; F02.81 Dementia in other diseases classified elsewhere, unspecified severity, with behavioral disturbance; D62 Acute posthemorrhagic anemia; F32.9 Major depressive disorder, single episode, unspecified; I10 Essential (primary) hypertension; N40.0 Benign prostatic hyperplasia without lower urinary tract symptoms; E11.621 Type 2 diabetes mellitus with foot ulcer; L97.529 Non-pressure chronic ulcer of other part of left foot with unspecified severity; F10.97 Alcohol use, unspecified with alcohol-induced persisting dementia; G20 Parkinson's disease; Z66 Do not resuscitate; E87.70 Fluid overload, unspecified; J44.9 Chronic obstructive pulmonary disease, unspecified; Z87.891 Personal history of nicotine dependence; Z79.4 Long term (current) use of insulin; Z79.899 Other long term (current) drug therapy
CPT/HCPCS: 12345; 36415; 36416; 71045; 73620; 80048; 80053; 80202; 82962; 83605; 84484; 85025; 86850; 86900; 87040; 88307; 93005; 93926; 94640; 96372; 96375; 97110; 97162; 99282; C9113; J0330; J0692; J1815; J1940; J1956; J2270; J2370; J2543; J2704; J3010; J3370; J3490; J7030; J7050; P9016

== ENCOUNTER 2020-01-29 17:52 | Emergency (ER) | payer MEDICARE, MEDICAID, SELFPAY ==
[2020-01-29 17:53] VITALS: BMI 24.4
--- NOTE | 2020-01-29 17:57 | ED_ITS ---
Entered by Zohra Kevin, acting as scribe for HPI - General Adult General: Chief complaint: General Medical Stated complaint: DISTENDED ABD FEVER Time Seen by Provider: 01/29/20 17:58 Source: family and EMS Mode of arrival: EMS Limitations: altered mental status and physical limitation History of Present Illness: HPI narrative: 84 yo male presents with unresponsive and resp distress. per family they told her the pt has a GI bleed and being brought to the ED. unable to obtain information due to the pt condition. Patient is currently in severe distress and has a guppy breathing and is very hypotensive and hypoxic. complaint: resp distress Onset (ago): day(s) (today ) Severity: severe Associated symptoms: Reports short of breath and other (unresponsive, resp distress) Treatments prior to arrival: other (oxygen by EMS) Review of Systems General: Reports: ROS unobtainable due to medical condition [facility] ED PFSH: Social History Smoking and tobacco status: former smoker Alcohol intake: former Marital status: / Pooja/Jehovah'S Witness: Hoahaoism Additional social history: shelter resident at [facility] Physical Exam Const: COMMON NORMALS: apparent distress (severe distress) HENMT: COMMON NORMALS: normocephalic and head/scalp atraumatic HEAD & SCALP: normocephalic and atraumatic Eye: COMMON NORMALS: negative for PERRL and negative for EOMs intact bilaterally PUPIL: No PERRL Neck/C-Spine: COMMON NORMALS: no lymphadenopathy Chest: COMMONS NORMALS: inspection of chest normal and palpation of chest normal Resp: EFFORT & INSPECTION: Yes abnormal respiratory pattern, Yes decreased respiratory effort and Yes uses accessory muscles Cardio: OTHER: Very faint pulses GI: OTHER: Distended abdomen very firm to palpation Neuro: OTHER: Unresponsive Skin: COMMON NORMALS: no rashes or lesions noted GENERAL SKIN EXAM: no rashes or lesions noted Course Vital Signs: Vital signs: Vital Signs Temperature 99.2 F 01/29/20 17:58 Pulse Rate 44 L 01/29/20 17:58 Respiratory Rate 8 L 01/29/20 17:58 Blood Pressure 47/34 01/29/20 17:58 Pulse Oximetry 43 L 01/29/20 17:58 MDM - General Adult MDM Narrative: Medical decision making narrative: Patient presented here in severe respiratory cardiac distress. Patient did have a very distended abdomen and could have had a perforated bowel or AAA rupture. When patient arrived here he was very hypotensive and guppy breathing. I had daughter come back and patient is DNR and DNI. I offered BiPAP or other measures and she states that he would just want comfort care. Patient shortly thereafter did pass away with time of at 1801. Discharge Plan Discharge Patient Disposition: Home, Self-Care Clinical Impression: Cardiac arrest Condition: Stable Prescriptions: No Action albuterol sulfate 2.5 mg /3 mL (0.083 %) solution for nebulization 2.5 mg INHALATION Q4H PRNRF: 0 multivitamin Tablet 1 tab PO DAILY RF: 0 amlodipine 5 mg Tablet 5 mg PO DAILY RF: 0 allopurinol 100 mg Tablet 200 mg PO DAILY RF: 0 pantoprazole 20 mg Tablet,Delayed Release (Dr/Ec) 20 mg PO DAILY RF: 0 tamsulosin [Flomax] 0.4 mg Capsule 0.4 mg PO DAILY RF: 0 glipizide 2.5 mg Tablet Extended Release 24hr 2.5 mg PO BID RF: 0 aspirin 81 mg Tablet,Chewable 81 mg PO DAILY RF: 0 losartan 100 mg Tablet 100 mg PO DAILY RF: 0 ciclopirox 0.77 % Gel 1 applic TOPICAL DAILY RF: 0 ciclopirox 1 % Shampoo 5 ml TOPICAL Q3D RF: 0 memantine [Namenda] 10 mg Tablet 10 mg PO BID RF: 0 mirtazapine 7.5 mg Tablet 7.5 mg PO DAILY RF: 0 Januvia 50 mg Tablet 50 mg PO DAILY RF: 0 TwoCal HN 0.08-2 gram-kcal/mL Liquid 60 ea PO TID RF: 0 hydrocodone-acetaminophen 5-325 mg Tablet 1 tab PO Q8H PRN (Reason: Pain) RF: 0 bisacodyl 10 mg Suppository 10 mg MI DAILY PRN (Reason: Constipation) RF: 0 acetaminophen [Tylenol] 325 mg Capsule 650 mg PO QID PRN (Reason: Fever) RF: 0 duloxetine 30 mg Capsule, Delayed Rel Sprinkle 30 mg PO DAILY RF: 0 Referrals: Wilma Todd DO [Family Provider] - Coding Level of Care Code ED Coagulating Operator for Chg Fwd Exam Problem Focused The documentation recorded by the scribe, Kevin,Zohra Kat, accurately reflects the service I personally performed and the decisions made by me, Audrey Mazariegos MD
[2020-01-29 17:58] VITALS: BP 47/34; PULSE 44; RESP 8; TEMP 37.3; O2SAT 43
--- NOTE | 2020-01-29 18:01 | PC.NURSE ---
FAMILY CALLED TO BE AT BEDSIDE. PT AGONAL RESP UPON ARRIVAL COLOR DUSKY DR LUNA AT BEDSIDE
== END 2020-01-29 22:32 | disposition home or self-care (01) ==
LOC: ER 19:02
PROVIDERS: Emergency Provider Emergency Medicine; Family Provider Family Medicine
DX: I46.9 Cardiac arrest, cause unspecified (principal); Z87.891 Personal history of nicotine dependence; Z66 Do not resuscitate
CPT/HCPCS: 12345; 99281; 99283